=== PATIENT | male | born 1965 | race Caucasian/White ===

== ENCOUNTER → 2020-05-26 11:20 | Outpatient (CLI) | payer OTHER, SELFPAY ==
[2020-05-26 10:08] VITALS: BMI 33.7
--- NOTE | 2020-05-26 11:40 | RAD_ITS ---
STUDY: X-RAY CHEST REASON FOR EXAM: Male, 55 years old. Chest pain. TECHNIQUE: Frontal and lateral views of the chest. COMPARISON: None. FINDINGS: Mild hyperexpansion. There is no demonstrated pleural abnormality. Normal size heart. Normal mediastinum and lian. Normal visualized pulmonary arteries. Normal visualized aortic arch and descending thoracic aorta. Normal visualized thoracic spine. Normal visualized ribs, clavicles, and shoulders. There is no demonstrated abnormality of the visualized soft tissue structures of the upper abdomen. RAD/Chest PA and Lateral IMPRESSION: Follow-up hyperexpansion with no acute or active cardiopulmonary disease. Electronically Signed: Sj Shahid MD at 15:41 EDT , Service support ,
== END ==
PROVIDERS: Referring Provider Internal Medicine Cardiovascular Disease; Visit Provider Internal Medicine Cardiovascular Disease
DX: R07.9 Chest pain, unspecified (principal); E78.2 Mixed hyperlipidemia; I10 Essential (primary) hypertension; R20.9 Unspecified disturbances of skin sensation
CPT/HCPCS: 71046

== ENCOUNTER → 2020-06-03 09:21 | Outpatient (CLI) | payer OTHER, SELFPAY ==
[2020-05-26 10:08] VITALS: BMI 33.7
--- NOTE | 2020-06-03 10:57 | STRESSREP ---
Stress Test Report Date: 06-03-2020 Procedure: Exercise tolerance test Indications: Chest pain Consent: Per the patient Procedure: The patient exercised on a Norberto protocol for 7 minutes and 32 seconds completing stage II and 1 minute and 32 seconds of stage III achieving a peak heart rate of 136 bpm (82% predicted maximal heart rate) with a peak blood pressure 178/98 mmHg and a peak MET capacity of approximately 9 MET's. The baseline ECG demonstrated sinus rhythm. The peak exercise ECG demonstrated somatic/motion artifact with no obvious ECG changes. There was a rare PVC during recovery. The functional capacity was considered good. The patient had chest discomfort during exercise with spontaneous resolution in recovery. The examination was discontinued secondary to chest tightness and dyspnea. The patient's chest tightness was reported to spontaneously resolved in recovery. Impression: 1. Technically adequate (percent predicted maximal heart rate greater than 85%) exercise tolerance test 2. Peak exercise ECG with somatic/motion artifact with no obvious ECG changes 3. There was a rare PVC during recovery 4. Comment: The patient noted chest discomfort during exercise with spontaneous resolution in recovery. This note was generated with [employer] software. It may contain incorrect words, spelling, and punctuation that were not noted in checking the note before signing.
== END ==
PROVIDERS: Referring Provider Nurse Practitioner Family; Visit Provider Nurse Practitioner Family
DX: R07.9 Chest pain, unspecified (principal); R06.02 Shortness of breath; Z82.49 Family history of ischemic heart disease and other diseases of the circulatory system
CPT/HCPCS: 93017

== ENCOUNTER → 2020-06-10 13:19 | Outpatient (CLI) | payer OTHER, SELFPAY ==
[2020-05-26 10:08] VITALS: BMI 33.7
--- NOTE | 2020-06-10 13:20 | ART_ITS ---
Reason For Study: PVD Procedure A bilateral lower extremity continuous wave Doppler with analog waveform analysis,segmental pressures,and ankle brachial indexes without exercise. Left Segmental Pressures Left brachial= 127mmHg. Left posterior tibial artery = 169mmHg. Left dorsalis pedis artery = 153mmHg. Left digit = 144 mmHg. The left dorsalis pedis waveforms are triphasic. The left posterior tibial artery waveforms are triphasic. Right Segmental Pressures Right brachial= 136mmHg. Right posterior tibial artery = 184mmHg. Right dorsalis pedis artery = 171mmHg. Right digit = 146 mmHg. The right dorsalis pedis waveforms are triphasic. The right posterior tibial artery waveforms are triphasic. Indices The right ankle brachial index by the dorsalis pedis is 1.26. The right ankle brachial index by the posterior tibial artery is 1.35. The right digital-brachial index is 1.07. The left ankle brachial index by the dorsalis pedis is 1.13. The left ankle brachial index by the posterior tibial artery is 1.24. The left digital-brachial index is 1.06. VL/Lower Ext Art Exam w/o Exercis Interpretation Summary Normal bilateral lower extremity ankle brachial indices and triphasic doppler w aveforms at rest. Normal bilateral digital brachial indices Ordering Physician: Gabriele Zelaya Referring Physician: Jamin Benson Performed By: Criss Moore RVT
== END ==
PROVIDERS: Referring Provider Internal Medicine Cardiovascular Disease; Visit Provider Internal Medicine Cardiovascular Disease
DX: R20.9 Unspecified disturbances of skin sensation (principal); E78.2 Mixed hyperlipidemia; I10 Essential (primary) hypertension; R07.9 Chest pain, unspecified
CPT/HCPCS: 93923

== ENCOUNTER → 2020-07-12 06:14 | Outpatient (CLI) | payer OTHER, SELFPAY ==
[2020-05-26 10:08] VITALS: BMI 33.7
--- NOTE | 2020-07-12 08:15 | STRESSREP ---
Stress Test Report Date: 07-12-2020 Procedure: Exercise tolerance test/imaging study Indications: Chest pain; CAD Consent: Per the patient Procedure: The patient exercised on a Norberto protocol for 9 minutes and 15 seconds completing Stage III and 15 seconds of Stage IV achieving a peak heart rate of 134 bpm (81% predicted maximal heart rate) with a peak blood pressure 188/80 mmHg and a peak MET capacity of 10 METs. The baseline ECG demonstrated sinus bradycardia. The peak exercise ECG demonstrated somatic/motion artifact with no obvious ECG changes. There was a rare PVC during recovery. The functional capacity was considered good. There was sharp left-sided chest discomfort in recovery with spontaneous resolution to baseline. The examination was discontinued secondary to dyspnea. Impression: 1. Technically inadequate (percent predicted maximal heart rate less than 85%) exercise tolerance test 2. Peak exercise ECG with somatic/motion artifact with no obvious ECG changes at the heart rate achieved 3. There was a rare PVC during recovery 4. Nuclear images pending Myocardial perfusion imaging study: Technique: The patient was injected with 14.5 mCi of technetium 99m Cardiolite and subsequently rest SPECT Cardiolite nuclear imaging was obtained in the horizontal long, vertical long, and short axis views. The patient exercised on a Norberto protocol for 9 minutes and 15 seconds completing Stage III and 15 seconds of Stage IV achieving a peak heart rate of 134 bpm (81% predicted maximal heart rate) with a peak blood pressure 188/80 mmHg and a peak MET capacity of 10 METs. The patient was injected with 44.5 mCi of technetium 99m Cardiolite and subsequently stress SPECT Cardiolite nuclear imaging was obtained in the horizontal long, vertical long, and short axis views. A gated Cardiolite study at peak stress was obtained. Interpretation: Rest and stress SPECT Cardiolite nuclear imaging status post realignment, normalization, and attenuation correction, demonstrates the appearance of body motion during image acquisition and also demonstrates the appearance of a small area of subtle diminished tracer uptake near the apical segments without significant change between rest and stress as well as at rest the appearance of subtle diminished tracer uptake near the distal anterior segments which appears to improve/normalize following stress. There is end systolic thickening and brightening. The gated Cardiolite study demonstrates myocardial thickening and inward wall motion. The reported LVEF is 63%. Impression: 1. Rest and stress SPECT Cardiolite nuclear imaging demonstrate the appearance of a small area of subtle diminished tracer uptake near the apical segments with at rest and stress without significant change appearing compatible with physiologic apical thinning as well as the appearance of subtle diminished tracer uptake near the distal anterior segments at rest which appears to improve/normalize following stress appearing compatible with shifting soft tissue attenuation/artifact with no myocardial perfusion changes considered diagnostic for associated stress-induced myocardial ischemia at the heart rate achieved. 2. The gated Cardiolite study reports an LVEF of 63%. This note was generated with [employer] software. It may contain incorrect words, spelling, and punctuation that were not noted in checking the note before signing.
== END ==
PROVIDERS: Referring Provider Internal Medicine Cardiovascular Disease; Visit Provider Internal Medicine Cardiovascular Disease
DX: R07.9 Chest pain, unspecified (principal); R06.02 Shortness of breath; I10 Essential (primary) hypertension; E78.2 Mixed hyperlipidemia
CPT/HCPCS: 78452; 93017; A9500; A4216

== ENCOUNTER 2023-02-13 15:08 | Inpatient (IN) | payer OTHER, SELFPAY ==
[2023-02-13 15:08] VITALS: BP 139/92; PULSE 133; RESP 16; TEMP 39.5; O2SAT 96; BMI 34.9
--- NOTE | 2023-02-13 15:24 | CT_ITS ---
STUDY: CT ABDOMEN AND PELVIS WITHOUT CONTRAST REASON FOR EXAM: Male, 58 years old. Pain, fever RADIATION DOSAGE (If Supplied By Facility): CTDIvol = ( 17.44 ) mGy, DLP = ( 1141.75 ) mGycm TECHNIQUE: Transaxial images were obtained from the dome of the diaphragm to the symphysis pubis without oral contrast, and without intravenous contrast. Sagittal and coronal images were reconstructed. Individualized dose optimization techniques were used for this CT. COMPARISON: None. FINDINGS: Minimal bilateral lower lobe atelectasis. Borderline cardiomegaly. Normal liver. Normal gallbladder and extrahepatic biliary system. Normal spleen. Normal pancreas. Normal bilateral adrenal glands. Minimal bilateral perinephric stranding, otherwise normal right kidney. Normal left kidney. Normal visualized stomach. Normal small intestine. Mild diverticulosis with no signs of diverticulitis. The appendix is visualized and appears normal. Normal abdominal aorta. Normal inferior vena cava. Normal retroperitoneum. Normal urinary bladder. Nonspecific diffuse scrotal edema. There is fullness of the right inguinal lymph nodes, etiology indeterminate and commonly associated with nonspecific inflammatory response. Small left-sided fat-containing inguinal hernia. Mild stranding within the subcutaneous fat along the right anterior scrotal and right anterior inguinal region , which may indicate cellulitis. There are diffuse degenerative changes of the visualized lumbar spine. CT/Abdomen/Pelvis without Cont IMPRESSION: No acute process within the abdomen and pelvis. Specifically, no acute appendicitis. Minimal diverticulosis with no signs of diverticulitis. Mild right-sided inguinal lymphadenopathy. Nonspecific bilateral scrotal edema with questionable right cellulitis along the upper scrotum and inguinal region. If indicated, these findings may be further assessed with scrotal ultrasound. Electronically Signed: Rosibel Scott MD at 16:48 EST ,
--- NOTE | 2023-02-13 15:24 | US_ITS ---
STUDY: SCROTUM ULTRASOUND REASON FOR EXAM: Male, 58 years old. Swelling, pain RT and gt;LT TECHNIQUE: Ultrasound evaluation of the scrotum was performed with color Doppler and static mora-scale imaging. COMPARISON: None. FINDINGS: RIGHT TESTICLE INTRATESTICULAR: There is a normal size of the right testicle. The right testicle measures 3.6 x 3.3 x 2.7 cm. There is a homogenous echotexture. There is normal arterial and normal venous vascularity. There is no demonstrated right testicular mass or cyst. EXTRATESTICULAR: The epididymis is enlarged. The epididymis head measures 1.7 x 1.3 x 1.1 cm. There is normal vascularity of the epididymis. There is no demonstrated epididymal cystic structure. There is a large hydrocele with subtle internal echoes. There is no demonstrated varicocele. There is no demonstrated extratesticular mass or cyst. The right scrotal wall measures 0.9 cm. There is nonspecific edema through the scrotal wall. LEFT TESTICLE INTRATESTICULAR: There is a normal size of the left testicle. The left testicle measures 3.3 x 3.1 x 2.0 cm. There is a homogenous echotexture. There is normal arterial and normal venous vascularity. There is no demonstrated left testicular mass or cyst. EXTRATESTICULAR: The epididymis is normal in size. The epididymis head measures 0.7 x 0.7 x 0.6 cm. There is normal vascularity of the epididymis. There is no demonstrated epididymal cystic structure. There is a large hydrocele with subtle internal echoes. There is no demonstrated varicocele. There is no demonstrated extratesticular mass or cyst. The left scrotal wall measures 0.9 cm. There is nonspecific edema throughout the scrotal wall US/Testicular with Arterial Flow IMPRESSION: Bilateral scrotal wall edema, right more than left with mild increased vascularity, cannot exclude cellulitis, clinical correlation recommended. No abscess seen. Bilateral large hydroceles with subtle internal echoes which may represent artifact versus sequela of infectious process or prior trauma. Bilateral testes are within normal limits with no intratesticular mass. Normal symmetrical color flow within the testis seen. Electronically Signed: Rosibel Scott MD at 17:38 EST ,
--- NOTE | 2023-02-13 15:25 | EKG12_ITS ---
Test Reason : Blood Pressure : / mmHG Vent. Rate : 113 BPM Atrial Rate : 113 BPM P-R Int : 154 ms QRS Dur : 086 ms QT Int : 318 ms P-R-T Axes : 003 038 018 degrees QTc Int : 436 ms Sinus tachycardia Otherwise normal ECG Confirmed by DAVEY NUÑEZ, ALEXANDRIA ([id number]), dictionary editor NAYELY OCHOA ([id number]) on 02/15/2023 1:24:24 PM Referred By: Confirmed By:ALEXANDRIA MARISCAL MD
--- NOTE | 2023-02-13 15:27 | EX.ED.GUMALE ---
HPI History of Present Illness Chief Complaint: Male Pain/Injury Narrative Narrative: 58-year-old male who denies significant past medical history presents with swelling of his penis and scrotum that he has had for the last few days. He relates history that on Saturday evening, states he had not had intercourse with his fianc?e in a while, so they were using a metal ring, and got aggressive. The following day, he noticed mild swelling of the skin on the shaft of his penis. Since then, over the last 4 days, he has had increased swelling and pain. He has been running fever and chills. He is able to urinate, but states he is having bladder pain. Additionally, the area on his right scrotum and his right testicle has been swollen. 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 He denies any discharge from his penis. No dysuria or hematuria. [facility] Medical History Chest pain COVID-19 (~01/2020) Essential hypertension Family history of heart disease Mixed hyperlipidemia Home Medications metoprolol tartrate 25 mg tablet 25 mg PO BID BLOOD PRESSURE 05/09/20 [History Last Taken 02/13/23] rosuvastatin 10 mg tablet 10 mg PO DAILY CHOLESTEROL 05/09/20 [History Last Taken Unknown] aspirin 325 mg tablet 325 mg PO DAILY HEART HEALTH 02/13/23 [History Last Taken Unknown] Allergy/AdvReac Type Severity Reaction Status Date / Time No Known Allergies Allergy Verified 02/13/23 15:11 Family History Father CAD (coronary artery disease) Stents X 3 Myocardial infarction Grandfather Myocardial infarction CABG CAD (coronary artery disease) Grandfather Myocardial infarction Social History Smoking Status: Light Smoker (<10/day) alcohol intake: current details: occasional substance use type: does not use caffeine: Yes Type: coffee Number of servings: 1 ROS ROS ED ROS Narrative Constitutional: Positive fever, positive chills. HEENT: No sore throat. No neck pain. No loss of vision. No rhinorrhea. Cardiovascular: No chest pain. No palpitations. No pedal edema. Respiratory: No cough, no shortness of breath. Abdominal: No abdominal pain. No nausea. No vomiting. Genitourinary: No dysuria. No hematuria. Positive swelling of shaft of penis and scrotum. Positive suprapubic tenderness and pain. Musculoskeletal: No myalgias. No arthralgias. Neurologic: No headaches. No dizziness. No lightheadedness. Skin: No rash. Positive for redness to scrotum and penile area. Psychiatric: No depression. No anxiety. EXAM Physical Exam Narrative Exam Narrative: Positive fever vital signs noted. Nontoxic-appearing. HEENT: Normocephalic. Atraumatic. PERRL, EOMI. Neck soft and supple. No point tenderness or step off. Cardiovascular: Positive tachycardia. No murmurs, rubs, or gallops appreciated. Respiratory: No tachypnea. Lungs clear to auscultation bilaterally. Gastrointestinal: Abdomen soft, mild tenderness suprapubically with normoactive bowel sounds. No rebound or guarding. Genitourinary: Chaperoned examination reveals positive swelling of the penile shaft, edematous, with swelling of the right scrotum with mild firmness. There is cracked dry, broken skin on the glans penis with erythema, no purulent drainage. No perineal erythema noted, no crepitance. Neurological: Awake. Alert. Nonfocal, nonlateralizing. Skin: No rash. Positive erythema of glans penis, penile shaft, and scrotum. Musculoskeletal: No pedal edema. Full range of motion extremities. Const Vital Signs: 02/13/23 15:08 02/13/23 15:25 02/13/23 17:57 Temperature 103.1 F H 99.1 F Temperature Source Oral Oral Pulse Rate 133 H 90 Respiratory Rate 16 16 Blood Pressure 139/92 H Blood Pressure Mean 107 Pulse Ox 96 97 Oxygen Delivery Method Room Air Room Air Room Air MDM MDM MDM Narrative Medical decision making narrative: In the differential diagnosis is cellulitis of the penis and scrotal area. He states the day before he was having vigorous intercourse, he may have had mild itchiness of his groin. In the differential diagnosis is yeast infection versus cellulitis from denuded epidermal layer of the genitals. I have lower suspicion for Yaya's gangrene and necrotizing fasciitis as patient is not diabetic, and he is circumcised. Although he has circumferential swelling of the penile shaft, I have low concern for paraphimosis/phimosis as once again he is circumcised. He is able to urinate. As he has a fever of 103.1 ?F and is tachycardic, sepsis workup was pursued including blood cultures. He was administered Tylenol and a first dose of Zosyn. He was also started on vancomycin as well. He declined any analgesics here in the emergency department initially. I reviewed his laboratory work and he has a leukocytosis of 23.4 with a hemoglobin normal at 14.2, hematocrit 42.4, platelet count normal at 359. Neutrophil percentage is elevated at 88.1. Sodium is slightly low at 133 with potassium 3.3, BUN of 15 and creatinine of 1.07. Glucose appropriately elevated at 126 with a normal anion gap of 10. Lactic acid is normal at 1.2. After Tylenol, his temperature came down to 101 ?F. Urinalysis is negative for infection with 0-5 WBCs and [address] of the abdomen and pelvis with out contrast was obtained and there is no evidence of an intra-abdominal process and reviewed the radiology report, they also comment on right inguinal lymphadenopathy. I also reviewed the testicular ultrasound report which shows good flow to both testicles and scrotal edema consistent with cellulitis but no evidence of an abscess. There is evidence of bilateral hydrocele as well which may be from infectious process versus traumatic. Patient did state that he was involved in vigorous sexual activity approximately 5 days ago. I discussed patient with Dr. Kim Lam who will admit the patient. Disposition is admit in stable condition. History & Record Review Discussion w/independent historian: Patient and Significant other (Fianc?) Additional record(s) reviewed:: No prior records Lab Data Attestation: I reviewed the patient's lab results. Labs: Laboratory Results - last 24 hr 02/13/23 02/13/23 15:50 16:00 WBC 23.4 H RBC 4.72 Hgb 14.2 Hct 42.4 MCV 89.8 MCH 30.1 MCHC 33.5 RDW Std Deviation 41.5 RDW Coeff of [place] 12.4 Plt Count 359 MPV 9.9 Immature Gran % (Auto) 1.200 H Neut % (Auto) 88.1 H Lymph % (Auto) 3.7 L [place] % (Auto) 6.7 Eos % (Auto) 0.0 Baso % (Auto) 0.3 Absolute Neuts (auto) 20.7 H Absolute Lymphs (auto) 0.86 Nucleated RBC % 0 Differential Comment SCANNED Diff Path Review May foll PT 15.6 H INR 1.2 APTT 29.5 Sodium 133 L Potassium 3.3 L Chloride 102 Carbon Dioxide 21.0 Anion Gap 10 BUN 15 Creatinine 1.07 Estim Creat Clear Calc 76.75 Est GFR (MDRD) Af Amer 91 Est GFR (MDRD) Non-Af 75 BUN/Creatinine Ratio 14.0 Glucose 126 H Lactic Acid 1.2 Calcium 9.1 Total Bilirubin 2.20 H AST 15 ALT 18 Alkaline Phosphatase 85 Total Protein 7.9 Albumin 3.3 Globulin 4.6 H Albumin/Globulin Ratio 0.7 L Urine Color Yellow Urine Clarity Sl. Cloudy Urine pH 5.0 Ur Specific [place] 1.020 Urine Protein 100 H Urine Glucose (UA) Normal Urine Ketones 50 H Urine Occult Blood 150 H Urine Nitrite Negative Urine Bilirubin Negative Urine Urobilinogen 4 H Ur Leukocyte Esterase 25 H Urine RBC 0-5 SEEN Urine WBC 0-5 SEEN Ur Squamous Epith Cells 0 SEEN Urine Bacteria 0 SEEN Urine Mucus 0 SEEN Radiography Diagnostic Testing: Clinical Impression(s) from Imaging Studies Abdomen/Pelvis CT 02/13/23 15:24 IMPRESSION: No acute process within the abdomen and pelvis. Specifically, no acute appendicitis. Minimal diverticulosis with no signs of diverticulitis. Mild right-sided inguinal lymphadenopathy. Nonspecific bilateral scrotal edema with questionable right cellulitis along the upper scrotum and inguinal region. If indicated, these findings may be further assessed with scrotal ultrasound. Electronically Signed: Rosibel Scott MD at 16:48 EST , Testicular Ultrasound 02/13/23 15:24 IMPRESSION: Bilateral scrotal wall edema, right more than left with mild increased vascularity, cannot exclude cellulitis, clinical correlation recommended. No abscess seen. Bilateral large hydroceles with subtle internal echoes which may represent artifact versus sequela of infectious process or prior trauma. Bilateral testes are within normal limits with no intratesticular mass. Normal symmetrical color flow within the testis seen. Electronically Signed: Rosibel Scott MD at 17:38 EST , Management Discussion w/another healthcare provider: Hospitalist Discharge Plan Triage Chief Complaint: Male Pain/Injury ED Provider: Yang Garsia Dx/Rx/DC Orders Clinical Impression: Cellulitis of scrotum, Penile edema, Cellulitis of penis Prescriptions: No Action aspirin 325 mg tablet 325 mg PO DAILY metoprolol tartrate 25 mg tablet 25 mg PO BID rosuvastatin 10 mg tablet 10 mg PO DAILY Patient Comments: PT STATES IT UPSETS THEIR STOMACH SO THEY HAVE NOT BEEN TAKING THIS MEDICATION. PT STATES THEY ARE SUPPOSED TO BE ON THIS MEDICATION ( OF 02-13-23) Primary Care Provider: Care Physician,No Primary Referrals: Jamin Benson MD [Non-Staff] -
--- NOTE | 2023-02-13 15:32 | NURSING ---
NO OLD EKGS
[2023-02-13] MEDS: Acetaminophen 500 MG Tablet 1000 MG PO ×2 (16:04→22:01)
[2023-02-13] MEDS: 0.9% Normal Saline (1000mL) 1,000 ML 999 ML IV (16:04)
[2023-02-13] MEDS: Piperacil/Tazobactam 3.375 GM in 0.9% Normal Saline (50mL MB+) 50 ML IV ×2 (16:04→22:02)
[2023-02-13 16:13] LABS: Bacteria 0 SEEN /hpf (None Seen); Mucous, Urine 0 SEEN /hpf (<or=2+); Squamous Epithelial Cells - UA 0 SEEN /hpf (0-5)
[2023-02-13 16:24] LABS: Absolute Lymphocyte Count 0.86 X10^3/uL (0.83-4.51); Absolute Neutrophil Count 20.7 X10^3/uL (2.0-7.7); Basophil# 0.07 X10^3/uL; Basophil% 0.3 % (0-1); Hematocrit 42.4 % (40-54); Hemoglobin 14.2 g/dL (13.0-16.5); Lymphocyte # 0.86 X10^3/ul (0.83-4.51); Lymphocyte % 3.7 % (19-41); Mean Corp Hgb Conc 33.5 g/dL (32-36); Mean Corpuscular Hgb 30.1 pg (27.0-32.0); Mean Corpuscular Volume 89.8 fL (80-94); Mean Platelet Vol. 9.9 fl (6.2-12.0); Monocyte# 1.58 X10^3/uL; Monocyte% 6.7 % (0-10); NRBC Flagged by Analyzer 0 % (0-5); Neutrophil # 20.66 X10^3/uL (2.7-7.7); Neutrophil % 88.1 % (47-70); POSITIVE DIFFERENTIAL YES; Platelet Count 359 K/mm3 (150-450); RBC Distribution Width CV 12.4 % (11.6-14.6); RBC Distribution Width SD 41.5 fl (35.1-43.9); Red Blood Count 4.72 M/mm3 (4.6-6.2); White Blood Count 23.4 K/mm3 (4.4-11.0)
[2023-02-13 16:25] LABS: Color, Urine Yellow (Yellow); Glucose, Dipstick Normal (Normal); Ketone-Dipstick 50 mg/dl (Negative); Leukocyte Esterase-Dipstick 25 /ul (Negative); Nitrite-Dipstick Negative (Negative); Occult Blood-Urine 150 /ul (Negative); Protein-Dipstick 100 mg/dl (Negative); Urine Bilirubin Dipstick Negative (Negative); Urine Clarity Sl. Cloudy (Clear); Urine Urobilinogen 4 mg/dl (Normal)
[2023-02-13 16:25] LABS: Differential Indicated SCAN CRITERIA MET
[2023-02-13 16:31] LABS: International Normalized Ratio 1.2; Prothrombin Time (Protime)PT. 15.6 SECONDS (11.7-14.9)
[2023-02-13 16:32] LABS: Partial Thromboplast Time 29.5 Seconds (24.1-36.2)
[2023-02-13 16:39] LABS: ALB/GLOB Ratio 0.7 RATIO (0.9-2.4); AST(SGOT) 15 U/L (15-37); Alanine Aminotransfer ALT/SGPT 18 U/L (16-61); Albumin, Serum 3.3 g/dL (3.2-5.0); Alkaline Phosphatase 85 U/L (45-117); Anion Gap 10 (5-15); BUN 15 mg/dL (7-18); Calcium,Total 9.1 mg/dL (8.5-10.1); Chloride 102 mmol/L (98-107); Creatinine, Serum 1.07 mg/dL (0.70-1.30); EST Glomerular Filtration Rate 75 mL/min (>60); Est Glom Filt Rate - Afr Amer 91 mL/min (>60); Estimated Creatinine Clearance 76.75 ml/min; Globulin 4.6 g/dL (2.2-4.2); Glucose 126 mg/dL (74-106); Potassium 3.3 mmol/L (3.5-5.1); Protein, Total 7.9 g/dL (6.4-8.2); Sodium Level 133 mmol/L (136-145)
[2023-02-13 16:47] LABS: Red Blood Cells-Urine 0-5 SEEN /hpf (0-5); White Blood Cells 0-5 SEEN /hpf (0-5)
[2023-02-13 16:51] LABS: Lactic Acid 1.2 mmol/L (0.4-1.9)
[2023-02-13] MEDS: Vancomycin HCl 2,000 MG in 0.9% Normal Saline (500mL Bag) 500 ML 250 MG IV (17:05)
[2023-02-13 17:10] LABS: Differential Comment SCANNED
[2023-02-13 17:57] VITALS: BP 127/84; PULSE 90; RESP 16; TEMP 37.3; O2SAT 97
--- NOTE | 2023-02-13 18:02 | PCM.HP.STD ---
HPI - General General Date of Admission: 02/13/23 Date of Service: 02/13/23 Chief Complaint: Swelling of scrotum and penis HPI Narrative MANUELA GUERRERO, is a 58 M who presented to the emergency department at [facility] on 02/13/2023 complaining of swelling of his scrotum and penis. Evidently started a couple days ago. He he noted that on Saturday evening he had not had sexual intercourse with his fianc?e in a while so they used a cock ring and got aggressive. The following day he noted some mild swelling in the skin of the shaft of his penis and since that point in time 4 days of gone by and is at increased swelling and pain. He reported he has been running some fever and chills at home but not having any difficulty urinating. He does report some bladder pain when he does urinate. He indicates that additionally, his right scrotum and right testicle have been swollen. He denied any significant discharge from his penis and had no dysuria or hematuria. He has had some fever and chills and has overall generally not been feeling well over the last day or so started with fever and chills yesterday.. Vital signs on presentation showed a temperature of 103.1, heart rate 133, blood pressure was 139/92, respiratory rate was 16 and oxygen saturations were 96 on room air. Repeat vitals show that he is now afebrile with a normal heart rate at 90. CBC shows a leukocytosis with a white count of 23.4 and a left shift with an 88.1% neutrophilia but was otherwise unremarkable. Coags are normal. He is mildly hyponatremic with a sodium of 133, mildly hypokalemic with a potassium of 3.3 and his bilirubin is slightly elevated at 2.20. Serum glucose is 126 and his lactic acid was 1.2. His UA did show some occult blood but there is no signs of infection. Imaging was performed. CT of his abdomen pelvis showed no acute process in the abdomen and pelvis but did show mild right-sided inguinal lymphadenopathy with nonspecific bilateral scrotal edema and questionable right cellulitis along the upper scrotum and inguinal region. Scrotal ultrasound was performed and demonstrated bilateral scrotal wall edema right greater than left with mild increased vascularity consistent with cellulitis but no abscess noted, bilateral large hydroceles with normal-appearing testes. Given the fact there is no signs of Yaya's gangrene on the imaging, he was started on IV antibiotics and request for admission was made. [facility] Medical History Chest pain COVID-19 (~01/2020) Essential hypertension Family history of heart disease Mixed hyperlipidemia Home Medications metoprolol tartrate 25 mg tablet 25 mg PO BID BLOOD PRESSURE 05/09/20 [History Last Taken 02/13/23] rosuvastatin 10 mg tablet 10 mg PO DAILY CHOLESTEROL 05/09/20 [History Last Taken Unknown] aspirin 325 mg tablet 325 mg PO DAILY HEART HEALTH 02/13/23 [History Last Taken Unknown] Allergy/AdvReac Type Severity Reaction Status Date / Time No Known Allergies Allergy Verified 02/13/23 15:11 Family History Father CAD (coronary artery disease) Stents X 3 Myocardial infarction Grandfather Myocardial infarction CABG CAD (coronary artery disease) Grandfather Myocardial infarction Surgical History no surgical history no surgical history Social History (Updated 02/13/23 @ 18:[address] Lien Lam DO) household members: significant other housing: house Smoking Status: Light Smoker (<10/day) details: occasional substance use type: does not use caffeine: Yes Type: coffee Number of servings: 1 ROS Constitutional Constitutional: Reports anorexia, chills, fatigue, fever(s), malaise and weakness; Denies change in weight, night sweats or other Eyes Eyes: Denies blurry vision, change in eye color, change in vision, discharge from eye(s), double vision, erythema, eye pain, loss of vision or other ENT HEENT: Denies abnormal hearing, dysphagia, ear pain, epistaxis, headache(s), hearing loss, nasal congestion, nasal discharge, post nasal drip, sinus pressure, sore throat or other Cardiovascular Cardiovascular: Reports rapid heart rate; Denies chest pain, claudication, dyspnea on exertion, edema, lightheadedness, orthopnea, palpitations, paroxysmal nocturnal dyspnea, syncope or other Respiratory/Chest Respiratory/Chest: Denies cough, dyspnea, excessive phlegm production, hemoptysis, productive cough, shortness of breath at rest, shortness of breath with exertion, wheezing or other Gastrointestinal Gastrointestinal: Reports abdominal pain Genitourinary Genitourinary: Reports urinary urgency and other Details: Penile pain and swelling, bilateral scrotal swelling and tenderness Musculoskeletal Musculoskeletal: Reports myalgias Neurologic Neurologic: Denies abnormal gait, abnormal speech, confusion, disequilibrium, dizziness, focal weakness, headache(s), numbness, paresthesias, seizure-like activity, seizures, syncope, tingling, tremor(s) or other Psychiatric Psychiatric: Denies anxiety, depression, homicidal ideation, suicidal ideation or other Endocrine Endocrinology: Denies change in body appearance, cold intolerance, excessive sweating, heat intolerance, polydipsia, polyuria or other Hematologic/Lymphatic Hematologic/Lymphatic: Denies anemia, easy bleeding, easy bruising, lymphadenopathy or other Allergic/Immunologic Allergic/Immunologic: Denies rhinitis, hives, eczemia, asthma or other Vital Signs Vital Signs Vital Signs: 02/13/23 15:08 02/13/23 15:25 02/13/23 17:57 Temperature 103.1 F H 99.1 F Temperature Source Oral Oral Pulse Rate 133 H 90 Respiratory Rate 16 16 Blood Pressure 139/92 H 127/84 H Blood Pressure Mean 107 98 Pulse Ox 96 97 Oxygen Delivery Method Room Air Room Air Room Air Weight Weight: 110.251 kg Body Mass Index (BMI) 34.9 Physical Exam Const alert, oriented x3 and well nourished; Negative for no apparent distress, average body habitus or healthy appearing Constitutional Narrative: Ill-appearing, upper middle-aged, white male, lying in bed with a cold compress over his forehead, significant other is at bedside General Appearance: cooperative HEENT normocephalic, head/scalp atraumatic, hearing grossly normal bilaterally and moist oral mucous membranes HEENT Narrative: Mallampati 3, no thrush Eyes PERRL, EOMs intact bilaterally and conjunctivae normal Eyes Narrative: No scleral icterus Neck no lymphadenopathy and supple Neck Narrative: Trachea midline, no thyroid enlargement Resp normal respiratory effort, no retractions, no use of accessory muscles and clear to auscultation bilaterally Auscultation: Negative for rales, rhonchi or wheezes Cardio regular rate, regular rhythm, S1 normal heart sound, S2 normal heart sound, no murmurs, no rub, no gallops and no clicks GI normal to inspection, nondistended, normoactive bowel sounds and soft to palpation GI Narrative: Mild tenderness at the very distal aspect of his abdomen no CVA tenderness; Negative for external exam normal, scrotum normal or no scrotal swelling Narrative: Severe scrotal swelling with erythema bilaterally and swelling and erythema of the penis, scrotum is severely tender Extremity no clubbing, cyanosis or edema Extremity Narrative: Mild right-sided inguinal lymphadenopathy palpated, pedal pulses are 2+ Neuro oriented x3, CN's II-XII intact bilaterally, moves all extremities and no focal motor deficits Speech: speech normal Psych affect normal Psych Narrative: Interacts appropriately Results Lab / Micro Data Attestation: I reviewed the patient's lab results. 02/13/23 15:50 02/13/23 15:50 Labs: Laboratory Results - last 24 hr 02/13/23 15:50: WBC 23.4 H, RBC 4.72, Hgb 14.2, Hct 42.4, MCV 89.8, MCH 30.1, MCHC 33.5, RDW Std Deviation 41.5, RDW Coeff of Eboni 12.4, Plt Count 359, MPV 9.9, Immature Gran % (Auto) 1.200 H, Neut % (Auto) 88.1 H, Lymph % (Auto) 3.7 L, [place] % (Auto) 6.7, Eos % (Auto) 0.0, Baso % (Auto) 0.3, Absolute Neuts (auto) 20.7 H, Absolute Lymphs (auto) 0.86, Nucleated RBC % 0, Differential Comment SCANNED, Diff Path Review June, PT 15.6 H, INR 1.2, APTT 29.5, Sodium 133 L, Potassium 3.3 L, Chloride 102, Carbon Dioxide 21.0, Anion Gap 10, BUN 15, Creatinine 1.07, Estim Creat Clear Calc 76.75, Est GFR (MDRD) Af Amer 91, Est GFR (MDRD) Non-Af 75, BUN/Creatinine Ratio 14.0, Glucose 126 H, Lactic Acid 1.2, Calcium 9.1, Total Bilirubin 2.20 H, AST 15, ALT 18, Alkaline Phosphatase 85, Total Protein 7.9, Albumin 3.3, Globulin 4.6 H, Albumin/Globulin Ratio 0.7 L 02/13/23 16:00: Urine Color Yellow, Urine Clarity Sl. Cloudy, Urine pH 5.0, Ur Specific [place] 1.020, Urine Protein 100 H, Urine Glucose (UA) Normal, Urine Ketones 50 H, Urine Occult Blood 150 H, Urine Nitrite Negative, Urine Bilirubin Negative, Urine Urobilinogen 4 H, Ur Leukocyte Esterase 25 H, Urine RBC 0-5 SEEN, Urine WBC 0-5 SEEN, Ur Squamous Epith Cells 0 SEEN, Urine Bacteria 0 SEEN, Urine Mucus 0 SEEN Imagaing Radiology Impression Abdomen/Pelvis CT 02/13/23 15:24 IMPRESSION: No acute process within the abdomen and pelvis. Specifically, no acute appendicitis. Minimal diverticulosis with no signs of diverticulitis. Mild right-sided inguinal lymphadenopathy. Nonspecific bilateral scrotal edema with questionable right cellulitis along the upper scrotum and inguinal region. If indicated, these findings may be further assessed with scrotal ultrasound. Electronically Signed: Rosibel Scott MD at 16:48 EST Reading Location ID and State: [email or web address] / [place] , Service support , Testicular Ultrasound 02/13/23 15:24 IMPRESSION: Bilateral scrotal wall edema, right more than left with mild increased vascularity, cannot exclude cellulitis, clinical correlation recommended. No abscess seen. Bilateral large hydroceles with subtle internal echoes which may represent artifact versus sequela of infectious process or prior trauma. Bilateral testes are within normal limits with no intratesticular mass. Normal symmetrical color flow within the testis seen. Electronically Signed: Rosibel Scott MD at 17:38 EST , Assessment & Plan Assessment/Plan (1) Cellulitis of penis: (2) Cellulitis of scrotum: (3) Leukocytosis: (4) Hypokalemia: (5) Hyponatremia: (6) Hyperbilirubinemia: PLAN: Plan Severe penile and scrotal cellulitis -Consult urology however I do not feel that any surgical intervention will likely need to be performed -No signs of Yaya's gangrene on imaging -Broad-spectrum antibiotics with vancomycin and Zosyn -Blood and urine cultures were obtained -IV fluids x 2 L at 100 cc/h then stop -Scheduled Tylenol and as needed pain medication with oxycodone -As needed antiemetics Mild hyponatremia -Sodium is 133 -Likely related to decreased p.o. intake due to infection -IV fluids given -Repeat in a.m. Hypokalemia -Replace with 40 mill equivalents p.o. potassium -Repeat in a.m. -Check a.m. magnesium level Hyperbilirubinemia -Likely related to acute infection -Repeat lab in a.m. -No significant liver pathology noted on CT of the abdomen pelvis Hyperglycemia -No history of diabetes -Check hemoglobin A1c as this would increase risk for infection -Monitor Leukocytosis -Due to the above -repeat white count with repeat CBC tomorrow Hypertension -Continue home metoprolol Hyperlipidemia -Continue home rosuvastatin Obesity -BMI 34.9 -Recommend weight loss Complicates treatment, prognosis, outcomes Tobacco abuse -Light smoker -17 g nicotine patch available if desired DVT prophylaxis -Lovenox subcu CODE STATUS Full code Charges/Coding Visit Charges Inpatient E&M: 26915 Init Hosp L2
--- NOTE | 2023-02-13 18:07 | NURSING ---
MED SURG ESTHER SCROTAL CELLULITIS, PENILE EDEMA AND CELLULITIS
[2023-02-13 18:50] LABS: Hemoglobin A1c 5.6 % (3.8-5.6)
[2023-02-13 18:52] VITALS: BP 127/76; PULSE 100; RESP 18; TEMP 37.2; O2SAT 97
[2023-02-13 19:03] VITALS: BP 139/91; PULSE 88; RESP 18; TEMP 36.5; O2SAT 97
[2023-02-13 19:55] VITALS: BMI 30.7
[2023-02-13] MEDS: 0.9% Normal Saline (1000mL) 1,000 ML 100 ML IV (20:12)
--- NOTE | 2023-02-13 20:22 | PCM.RX.CS ---
Consult Antibiotic Management Pharmacy has been consulted to manage selected antiobiotic: Vancomycin Type of Intervention Type of Consult: New start Suspected Infection Suspected Infection: Skin/Soft tissue Labs Labs: Sodium 133 mmol/L (136-145) L 02/13/23 15:50 Potassium 3.3 mmol/L (3.5-5.1) L 02/13/23 15:50 Chloride 102 mmol/L (98-107) 02/13/23 15:50 Carbon Dioxide 21.0 mmol/L (21.0-32.0) 02/13/23 15:50 Anion Gap 10 (5-15) 02/13/23 15:50 BUN 15 mg/dL (7-18) 02/13/23 15:50 Creatinine 1.07 mg/dL (0.70-1.30) 02/13/23 15:50 Est GFR (MDRD) Af Amer 91 mL/min (>60) 02/13/23 15:50 Est GFR (MDRD) Non-Af 75 mL/min (>60) 02/13/23 15:50 BUN/Creatinine Ratio 14.0 RATIO (10-20) 02/13/23 15:50 Glucose 126 mg/dL (74-106) H 02/13/23 15:50 Goal Trough Goal Trough: 15-20 mcg/mL Pharmacy Plan for Drug Dosing Pharmacy Plan for Drug Dosing: NEW IV VANCOMYCIN Consulting Physician: Dr. Scooter Lam Indication: SSTI Goal Trough: 15-20 SrCr: 1.07 CrCl: 76 Ml/min Comments: patient had initial ED dose of vancomycin 2000mg IV x1 admin 02/13 @1705. Vancomycin Dose: Will start patient on 1500mg IV Q12hr to start 02/14/23 @0500. Pending Level: 02/15/23 @0430, prior to 4th total dose of vancomycin per protocol Pharmacy Service will continue to monitor and adjust dosing as required.
[2023-02-13 22:01] VITALS: PULSE 88
[2023-02-13] MEDS: Potassium Chloride Oral Tablet 20 MEQ 40 MEQ PO (22:01)
[2023-02-13] MEDS: Metoprolol Tartrate 25 MG Tablet PO (22:01)
[2023-02-13] MEDS: Atorvastatin Calcium 10 MG Tablet 5 MG PO (22:01)
[2023-02-14] VITALS (7 sets, daily range): BP systolic 126–160; BP diastolic 84–94; PULSE 75–92; RESP 16–20; TEMP 36.9–37.6; O2SAT 97–99
[2023-02-14] MEDS: Vancomycin HCl 1,500 MG in 0.9% Normal Saline (500mL Bag) 500 ML 250 MG IV ×2 (04:36→17:24)
[2023-02-14] MEDS: Acetaminophen 500 MG Tablet 1000 MG PO ×3 (04:37→23:34)
[2023-02-14] MEDS: Piperacil/Tazobactam 3.375 GM in 0.9% Normal Saline (50mL MB+) 50 ML IV ×3 (06:44→23:35)
[2023-02-14] MEDS: 0.9% Normal Saline (1000mL) 1,000 ML 100 ML IV (06:45)
[2023-02-14 06:51] LABS: Absolute Lymphocyte Count 0.54 X10^3/uL (0.83-4.51); Absolute Neutrophil Count 17.5 X10^3/uL (2.0-7.7); Basophil# 0.05 X10^3/uL; Basophil% 0.3 % (0-1); Eosinophil# 0.01 X10^3/uL; Eosinophils% 0.1 % (0-5); Hematocrit 35.9 % (40-54); Hemoglobin 11.9 g/dL (13.0-16.5); Lymphocyte # 0.54 X10^3/ul (0.83-4.51); Lymphocyte % 2.8 % (19-41); Mean Corp Hgb Conc 33.1 g/dL (32-36); Mean Corpuscular Hgb 30.4 pg (27.0-32.0); Mean Corpuscular Volume 91.8 fL (80-94); Mean Platelet Vol. 9.7 fl (6.2-12.0); Monocyte# 1.32 X10^3/uL; Monocyte% 6.7 % (0-10); NRBC Flagged by Analyzer 0 % (0-5); Neutrophil # 17.48 X10^3/uL (2.7-7.7); POSITIVE DIFFERENTIAL YES; Platelet Count 294 K/mm3 (150-450); RBC Distribution Width CV 12.8 % (11.6-14.6); RBC Distribution Width SD 42.9 fl (35.1-43.9); Red Blood Count 3.91 M/mm3 (4.6-6.2); White Blood Count 19.6 K/mm3 (4.4-11.0)
[2023-02-14 06:52] LABS: Differential Indicated SCAN CRITERIA MET
--- NOTE | 2023-02-14 07:18 | CON.PCM.UR_ITS ---
HPI Consult Data Date of Consult: 02/14/23 HPI Narrative Reason for Consultation: Scrotal cellulitis HPI Narrative: MANUELA GUERRERO, is a 58 M who presents to the hospital with scrotal cellulitis and leukocytosis, CT scan and ultrasound reviewed no sign of abscess no sign of Yaya's on examination no sign of abscess just swollen red erythematous skin no surgical intervention needed at this point just monitor to make sure it does not turn into an abscess continue with IV antibiotics call with questions, he also should elevate the scrotum and ice as necessary [facility] Medical History Chest pain COVID-19 (~01/2020) Essential hypertension Family history of heart disease Mixed hyperlipidemia Home Medications metoprolol tartrate 25 mg tablet 25 mg PO BID BLOOD PRESSURE 05/09/20 [History Last Taken 02/13/23] rosuvastatin 10 mg tablet 10 mg PO DAILY CHOLESTEROL 05/09/20 [History Last Taken Unknown] aspirin 325 mg tablet 325 mg PO DAILY HEART HEALTH 02/13/23 [History Last Taken Unknown] Allergy/AdvReac Type Severity Reaction Status Date / Time No Known Allergies Allergy Verified 02/13/23 15:11 Family History Father CAD (coronary artery disease) Stents X 3 Myocardial infarction Grandfather Myocardial infarction CABG CAD (coronary artery disease) Grandfather Myocardial infarction Surgical History no surgical history Social History household members: significant other housing: house Smoking Status: Light Smoker (<10/day) details: occasional substance use type: does not use caffeine: Yes Type: coffee Number of servings: 1 Lab / Micro Data 02/14/23 06:20 02/13/23 15:50 Labs: Laboratory Results - last 24 hr 02/13/23 15:50: WBC 23.4 H, RBC 4.72, Hgb 14.2, Hct 42.4, MCV 89.8, MCH 30.1, MCHC 33.5, RDW Std Deviation 41.5, RDW Coeff of Eboni 12.4, Plt Count 359, MPV 9.9, Immature Gran % (Auto) 1.200 H, Neut % (Auto) 88.1 H, Lymph % (Auto) 3.7 L, [place] % (Auto) 6.7, Eos % (Auto) 0.0, Baso % (Auto) 0.3, Absolute Neuts (auto) 20.7 H, Absolute Lymphs (auto) 0.86, Nucleated RBC % 0, Differential Comment SCANNED, Diff Path Review June, PT 15.6 H, INR 1.2, APTT 29.5, Sodium 133 L, Potassium 3.3 L, Chloride 102, Carbon Dioxide 21.0, Anion Gap 10, BUN 15, Creatinine 1.07, Estim Creat Clear Calc 76.75, Est GFR (MDRD) Af Amer 91, Est GFR (MDRD) Non-Af 75, BUN/Creatinine Ratio 14.0, Glucose 126 H, Hemoglobin A1c 5.6, Lactic Acid 1.2, Calcium 9.1, Total Bilirubin 2.20 H, AST 15, ALT 18, Alkaline Phosphatase 85, Total Protein 7.9, Albumin 3.3, Globulin 4.6 H, Albumin/Globulin Ratio 0.7 L 02/13/23 16:00: Urine Color Yellow, Urine Clarity Sl. Cloudy, Urine pH 5.0, Ur Specific [place] 1.020, Urine Protein 100 H, Urine Glucose (UA) Normal, Urine Ketones 50 H, Urine Occult Blood 150 H, Urine Nitrite Negative, Urine Bilirubin Negative, Urine Urobilinogen 4 H, Ur Leukocyte Esterase 25 H, Urine RBC 0-5 SEEN, Urine WBC 0-5 SEEN, Ur Squamous Epith Cells 0 SEEN, Urine Bacteria 0 SEEN, Urine Mucus 0 SEEN 02/14/23 06:20: WBC 19.6 H, RBC 3.91 L, Hgb 11.9 L, Hct 35.9 L, MCV 91.8, MCH 30.4, MCHC 33.1, RDW Std Deviation 42.9, RDW Coeff of Eboni 12.8, Plt Count 294, MPV 9.7, Immature Gran % (Auto) 1.100 H, Neut % (Auto) 89.0 H, Lymph % (Auto) 2.8 L, [place] % (Auto) 6.7, Eos % (Auto) 0.1, Baso % (Auto) 0.3, Absolute Neuts (auto) 17.5 H, Absolute Lymphs (auto) 0.54 L, Nucleated RBC % 0 Imagaing Radiology Impression Abdomen/Pelvis CT 02/13/23 15:24 IMPRESSION: No acute process within the abdomen and pelvis. Specifically, no acute appendicitis. Minimal diverticulosis with no signs of diverticulitis. Mild right-sided inguinal lymphadenopathy. Nonspecific bilateral scrotal edema with questionable right cellulitis along the upper scrotum and inguinal region. If indicated, these findings may be further assessed with scrotal ultrasound. Electronically Signed: Rosibel Scott MD at 16:48 EST Reading Location ID and State: [address] [employer] / [employer] , Service support , Testicular Ultrasound 02/13/23 15:24 IMPRESSION: Bilateral scrotal wall edema, right more than left with mild increased vascularity, cannot exclude cellulitis, clinical correlation recommended. No abscess seen. Bilateral large hydroceles with subtle internal echoes which may represent artifact versus sequela of infectious process or prior trauma. Bilateral testes are within normal limits with no intratesticular mass. Normal symmetrical color flow within the testis seen. Electronically Signed: Rosibel Scott MD at 17:38 EST ,
[2023-02-14 07:26] LABS: ALB/GLOB Ratio 0.6 RATIO (0.9-2.4); AST(SGOT) 12 U/L (15-37); Alanine Aminotransfer ALT/SGPT 16 U/L (16-61); Albumin, Serum 2.4 g/dL (3.2-5.0); Alkaline Phosphatase 78 U/L (45-117); Anion Gap 10 (5-15); BUN 16 mg/dL (7-18); BUN/Creat Ratio 11.4 RATIO (10-20); Calcium,Total 7.9 mg/dL (8.5-10.1); Chloride 107 mmol/L (98-107); EST Glomerular Filtration Rate 55 mL/min (>60); Est Glom Filt Rate - Afr Amer 67 mL/min (>60); Estimated Creatinine Clearance 58.66 ml/min; Globulin 4.2 g/dL (2.2-4.2); Glucose 154 mg/dL (74-106); Magnesium 2.2 mg/dL (1.6-2.6); Phosphorus 2.5 mg/dL (2.5-4.9); Potassium 3.5 mmol/L (3.5-5.1); Protein, Total 6.6 g/dL (6.4-8.2); Sodium Level 138 mmol/L (136-145)
[2023-02-14 07:33] LABS: Differential Comment SCANNED
--- NOTE | 2023-02-14 07:51 | PN.HOSP_ITS ---
Subjective Subjective Still with pain in scrotum and penis. States that this symptoms began on Saturday. 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 Thinks he may have scraped it with the jostling that he experiences in the truck cab. Objective Data Objective Data Vital Signs: Vital Signs Temp Pulse Resp BP Pulse Ox O2 Del Method 36.9 C 85 16 152/84 H 99 Room Air 02/14/23 04:40 02/14/23 04:40 02/14/23 04:40 02/14/23 04:40 02/14/23 04:40 02/14/23 04:40 Oxygen Delivery Method Room Air Weight: 97.1 kg Body Mass Index (BMI) 30.7 Intake & Output: Intake and Output for Last 24 Hours 02/12/23 02/13/23 02/14/23 23:59 23:59 23:59 Intake Total 1890 / 1890 2280 / 2280 Balance 1890 / 1890 2280 / 2280 Lab / Micro Data 02/14/23 06:20 02/14/23 06:20 Labs: Laboratory Results - last 24 hr 02/13/23 15:50: WBC 23.4 H, RBC 4.72, Hgb 14.2, Hct 42.4, MCV 89.8, MCH 30.1, MCHC 33.5, RDW Std Deviation 41.5, RDW Coeff of Eboni 12.4, Plt Count 359, MPV 9.9, Immature Gran % (Auto) 1.200 H, Neut % (Auto) 88.1 H, Lymph % (Auto) 3.7 L, [place] % (Auto) 6.7, Eos % (Auto) 0.0, Baso % (Auto) 0.3, Absolute Neuts (auto) 20.7 H, Absolute Lymphs (auto) 0.86, Nucleated RBC % 0, Differential Comment SCANNED, Diff Path Review June foll, PT 15.6 H, INR 1.2, APTT 29.5, Sodium 133 L, Potassium 3.3 L, Chloride 102, Carbon Dioxide 21.0, Anion Gap 10, BUN 15, Creatinine 1.07, Estim Creat Clear Calc 76.75, Est GFR (MDRD) Af Amer 91, Est GFR (MDRD) Non-Af 75, BUN/Creatinine Ratio 14.0, Glucose 126 H, Hemoglobin A1c 5.6, Lactic Acid 1.2, Calcium 9.1, Total Bilirubin 2.20 H, AST 15, ALT 18, Alkaline Phosphatase 85, Total Protein 7.9, Albumin 3.3, Globulin 4.6 H, Albumin/Globulin Ratio 0.7 L 02/13/23 16:00: Urine Color Yellow, Urine Clarity Sl. Cloudy, Urine pH 5.0, Ur Specific [place] 1.020, Urine Protein 100 H, Urine Glucose (UA) Normal, Urine Ketones 50 H, Urine Occult Blood 150 H, Urine Nitrite Negative, Urine Bilirubin Negative, Urine Urobilinogen 4 H, Ur Leukocyte Esterase 25 H, Urine RBC 0-5 SEEN, Urine WBC 0-5 SEEN, Ur Squamous Epith Cells 0 SEEN, Urine Bacteria 0 SEEN, Urine Mucus 0 SEEN 02/14/23 06:20: WBC 19.6 H, RBC 3.91 L, Hgb 11.9 L, Hct 35.9 L, MCV 91.8, MCH 30.4, MCHC 33.1, RDW Std Deviation 42.9, RDW Coeff of Eboni 12.8, Plt Count 294, MPV 9.7, Immature Gran % (Auto) 1.100 H, Neut % (Auto) 89.0 H, Lymph % (Auto) 2.8 L, [place] % (Auto) 6.7, Eos % (Auto) 0.1, Baso % (Auto) 0.3, Absolute Neuts (auto) 17.5 H, Absolute Lymphs (auto) 0.54 L, Nucleated RBC % 0, Differential Comment SCANNED, Sodium 138, Potassium 3.5, Chloride 107, Carbon Dioxide 21.0, Anion Gap 10, BUN 16, Creatinine 1.40 H, Estim Creat Clear Calc 58.66, Est GFR (MDRD) Af Amer 67, Est GFR (MDRD) Non-Af 55 L, BUN/Creatinine Ratio 11.4, Glucose 154 H, Calcium 7.9 L, Phosphorus 2.5, Magnesium 2.2, Total Bilirubin 1.30 H, AST 12 L, ALT 16, Alkaline Phosphatase 78, Total Protein 6.6, Albumin 2.4 L, Globulin 4.2, Albumin/Globulin Ratio 0.6 L Radiography Diagnostic Testing: Radiology Impression Abdomen/Pelvis CT 02/13/23 15:24 IMPRESSION: No acute process within the abdomen and pelvis. Specifically, no acute appendicitis. Minimal diverticulosis with no signs of diverticulitis. Mild right-sided inguinal lymphadenopathy. Nonspecific bilateral scrotal edema with questionable right cellulitis along the upper scrotum and inguinal region. If indicated, these findings may be further assessed with scrotal ultrasound. Electronically Signed: Rosibel Scott MD at 16:48 EST Reading Location ID and State: [email or web address] / [employer], [place] , Service support , Testicular Ultrasound 02/13/23 15:24 IMPRESSION: Bilateral scrotal wall edema, right more than left with mild increased vascularity, cannot exclude cellulitis, clinical correlation recommended. No abscess seen. Bilateral large hydroceles with subtle internal echoes which may represent artifact versus sequela of infectious process or prior trauma. Bilateral testes are within normal limits with no intratesticular mass. Normal symmetrical color flow within the testis seen. Electronically Signed: Rosibel Scott MD at 17:38 EST , Physical Exam Narrative Scrotal erythema. Penile erythema with what appears to be some phimosis. Const alert and no apparent distress HEENT head/scalp atraumatic Neuro moves all extremities and no focal motor deficits Psych affect normal Assessment & Plan Assessment/Plan (1) Cellulitis of penis: (2) Cellulitis of scrotum: (3) Leukocytosis: (4) Hypokalemia: (5) Hyponatremia: (6) Hyperbilirubinemia: PLAN: Plan Severe penile and scrotal cellulitis * Urology consulted. Recommending elevating the scrotum as well as ice. * No signs of Yaya's gangrene on imaging * Antibiotics with vancomycin and pip/tazo * Blood and urine cultures were obtained * Overall, patient reported that is improving. Given the marked erythema, would recommend continuing IV antibiotics for another 24 hours and supportive management in the interim. Mild hyponatremia * resolved. No additional work up at this time. Hypokalemia * Replace with 40 mill equivalents p.o. potassium * Repeat in a.m. * Check a.m. magnesium level Hyperbilirubinemia * Improving. Likely related to acute infection * Repeat lab in a.m.No significant liver pathology noted on CT of the abdomen pelvis Hyperglycemia * Likely 2/2 infection. a1c 5.6 Leukocytosis * 2/2 infection. Improving. Monitor Chronic conditions: * Hypertension-Continue home metoprolol * Hyperlipidemia-Continue home rosuvastatin * Obesity-BMI 34.9. Recommend weight loss, Complicates treatment, prognosis, outcomes * Tobacco abuse-Light smoker-17 g nicotine patch available if desired DVT prophylaxis: enoxaparin. -Lovenox subcu CODE STATUS Full code Charges/Coding Visit Charges Inpatient E&M: 87639 Subs Hosp L2
[2023-02-14] MEDS: Aspirin 325 MG Tablet PO (10:06)
[2023-02-14] MEDS: Metoprolol Tartrate 25 MG Tablet PO ×2 (10:06→23:34)
[2023-02-14] MEDS: oxyCODONE 5 MG Tablet PO ×2 (10:26→18:58)
[2023-02-14 10:45] LABS: Pathologist Review Reviewed
[2023-02-14] MEDS: 0.9% Saline Lock 10 ML Syringe IV (13:04)
--- NOTE | 2023-02-14 15:22 | CASEMGMT ---
BESSY REED Assessment Face to Face with patient for initial transition planning/care coordination assessment. BESSY REED introduced self and role at [facility], pt voices understanding. Pt resting comfortably in bed and is calm. Care providers, pharmacy, and demographics verified. Admitting dx: Scrotal Cellulitis LACE Strata: 1 PCP: No PCP, list provided Specialists: Denies Preferred Pharmacy: [facility] Insurance: [employer] Prescription Benefit: Pt was unsure. Will f/u LNOK: Mariluz Godfrey ([facility]) Living Arrangements: Pt states living in a 2 story home with his SO. Pt reports never using the upstairs. Pt reports there are 4 steps to enter the home and denies issues with these. States independence with ADLs and IADLs. Transportation:Pt and pt SO drives DME: Denies. No needs identified. HHC/SNF: Denies history Pt?s goal/plan: Pt goal is to DC home with his SO. Pt requests a work excuse not and this BESSY REED updates the charge nurse. Charge nurse states she will obtain this for the pt. Pt denies any other questions or concerns at time of assessment. Sara Hidalgo RN, CM
[2023-02-14] MEDS: Atorvastatin Calcium 10 MG Tablet 5 MG PO (23:33)
[2023-02-15] VITALS (7 sets, daily range): BP systolic 123–148; BP diastolic 84–89; PULSE 67–77; RESP 18; TEMP 36.8–37.6; O2SAT 95–98
[2023-02-15] MEDS: Acetaminophen 500 MG Tablet 1000 MG PO ×3 (05:16→21:53)
[2023-02-15 05:39] LABS: Absolute Lymphocyte Count 1.19 X10^3/uL (0.83-4.51); Absolute Neutrophil Count 12.9 X10^3/uL (2.0-7.7); Basophil# 0.04 X10^3/uL; Basophil% 0.2 % (0-1); Eosinophil# 0.11 X10^3/uL; Eosinophils% 0.7 % (0-5); Hematocrit 38.1 % (40-54); Hemoglobin 12.5 g/dL (13.0-16.5); Lymphocyte # 1.19 X10^3/ul (0.83-4.51); Lymphocyte % 7.4 % (19-41); Mean Corp Hgb Conc 32.8 g/dL (32-36); Mean Corpuscular Hgb 30.5 pg (27.0-32.0); Mean Corpuscular Volume 92.9 fL (80-94); Mean Platelet Vol. 9.9 fl (6.2-12.0); Monocyte# 1.54 X10^3/uL; Monocyte% 9.5 % (0-10); NRBC Flagged by Analyzer 0 % (0-5); Neutrophil # 12.92 X10^3/uL (2.7-7.7); Neutrophil % 79.9 % (47-70); POSITIVE DIFFERENTIAL YES; Platelet Count 358 K/mm3 (150-450); RBC Distribution Width CV 12.9 % (11.6-14.6); RBC Distribution Width SD 44.2 fl (35.1-43.9); White Blood Count 16.2 K/mm3 (4.4-11.0)
[2023-02-15 06:01] LABS: Differential Indicated SCAN CRITERIA MET
[2023-02-15 06:07] LABS: Vancomycin, Trough Level 15.5 ug/mL (5.0-15.0)
[2023-02-15 06:20] LABS: Anion Gap 8 (5-15); BUN 14 mg/dL (7-18); BUN/Creat Ratio 9.6 RATIO (10-20); Calcium,Total 8.5 mg/dL (8.5-10.1); Chloride 110 mmol/L (98-107); Creatinine, Serum 1.46 mg/dL (0.70-1.30); EST Glomerular Filtration Rate 53 mL/min (>60); Est Glom Filt Rate - Afr Amer 64 mL/min (>60); Estimated Creatinine Clearance 56.25 ml/min; Glucose 114 mg/dL (74-106); Potassium 3.4 mmol/L (3.5-5.1); Sodium Level 140 mmol/L (136-145)
[2023-02-15] MEDS: Vancomycin HCl 1,500 MG in 0.9% Normal Saline (500mL Bag) 500 ML 250 MG IV ×2 (06:22→21:45)
--- NOTE | 2023-02-15 06:29 | PCM.RX.CS ---
Consult Antibiotic Management Pharmacy has been consulted to manage selected antiobiotic: Vancomycin Type of Intervention Type of Consult: Follow-up Suspected Infection Suspected Infection: Skin/Soft tissue Labs Labs: Sodium 140 mmol/L (136-145) 02/15/23 05:05 Potassium 3.4 mmol/L (3.5-5.1) L 02/15/23 05:05 Chloride 110 mmol/L (98-107) H 02/15/23 05:05 Carbon Dioxide 22.0 mmol/L (21.0-32.0) 02/15/23 05:05 Anion Gap 8 (5-15) 02/15/23 05:05 BUN 14 mg/dL (7-18) 02/15/23 05:05 Creatinine 1.46 mg/dL (0.70-1.30) H 02/15/23 05:05 Est GFR (MDRD) Af Amer 64 mL/min (>60) 02/15/23 05:05 Est GFR (MDRD) Non-Af 53 mL/min (>60) L 02/15/23 05:05 BUN/Creatinine Ratio 9.6 RATIO (10-20) L 02/15/23 05:05 Glucose 114 mg/dL (74-106) H 02/15/23 05:05 Vancomycin Trough 15.5 ug/mL (5.0-15.0) H 02/15/23 05:05 Microbiology Microbiology: Microbiology 02/13/23 16:00 Urine, Clean Catch Urine Culture - Preliminary Culture exhibits no growth. Dosing Weight Weight used for dosin.1 kg Estimated Creatinine Clearance Estimated Creatinine Clearance: 56 Goal Trough Goal Trough: 15-20 mcg/mL Pharmacy Plan for Drug Dosing Pharmacy Plan for Drug Dosing: Vancomycin trough level of 15.5, drawn 15.5hrs post-dose, was within the target range of 15-20. Will continue dosing at 1500mg q12h and draw another trough level in two days. Pharmacy Service will continue to monitor and adjust dosing as required. Follow-Up Labs Follow-Up Labs: Trough: Vancomycin Date/Time Labs Ordered Labs to be done on [date and time ordered]: 02/17/23 @4886
--- NOTE | 2023-02-15 07:13 | PN.HOSP_ITS ---
Reason for Visit Reason for Visit: Diagnoses Elevated white blood cell count, unspecified (02/13/23) Other disorders of bilirubin metabolism (02/13/23) Hypo-osmolality and hyponatremia (02/13/23) Hypokalemia (02/13/23) Cellulitis of corpus cavernosum and penis (02/13/23) Inflammatory disorders of scrotum (02/13/23) Subjective Subjective Overall feeling better. Still has waxing waning periods where he feels good and then valleys when he does not feel as well but overall better. Objective Data Objective Data Vital Signs: Vital Signs Temp Pulse Resp BP Pulse Ox O2 Del Method 37.6 C H 67 18 146/89 H 95 Room Air 02/15/23 05:14 02/15/23 05:14 02/15/23 05:14 02/15/23 05:14 02/15/23 05:14 02/15/23 05:14 Oxygen Delivery Method Room Air Weight: 97.1 kg Body Mass Index (BMI) 30.7 Intake & Output: Intake and Output for Last 24 Hours 02/13/23 02/14/23 02/15/23 23:59 23:59 23:59 Intake Total 1890 / 1890 4510 / 4510 50 / 50 Balance 1890 / 1890 4510 / 4510 50 / 50 Lab / Micro Data 02/15/23 05:05 02/15/23 05:05 Labs: Laboratory Results - last 24 hr 02/13/23 15:50: Diff Path Review Reviewed 02/14/23 06:20: Differential Comment SCANNED, Sodium 138, Potassium 3.5, Chloride 107, Carbon Dioxide 21.0, Anion Gap 10, BUN 16, Creatinine 1.40 H, Estim Creat Clear Calc 58.66, Est GFR (MDRD) Af Amer 67, Est GFR (MDRD) Non-Af 55 L, BUN/Creatinine Ratio 11.4, Glucose 154 H, Calcium 7.9 L, Phosphorus 2.5, Magnesium 2.2, Total Bilirubin 1.30 H, AST 12 L, ALT 16, Alkaline Phosphatase 78, Total Protein 6.6, Albumin 2.4 L, Globulin 4.2, Albumin/Globulin Ratio 0.6 L 02/15/23 05:05: WBC 16.2 H, RBC 4.10 L, Hgb 12.5 L, Hct 38.1 L, MCV 92.9, MCH 30.5, MCHC 32.8, RDW Std Deviation 44.2 H, RDW Coeff of Eboni 12.9, Plt Count 358, MPV 9.9, Immature Gran % (Auto) 2.300 H, Neut % (Auto) 79.9 H, Lymph % (Auto) 7.4 L, [place] % (Auto) 9.5, Eos % (Auto) 0.7, Baso % (Auto) 0.2, Absolute Neuts (auto) 12.9 H, Absolute Lymphs (auto) 1.19, Nucleated RBC % 0, Sodium 140, Potassium 3.4 L, Chloride 110 H, Carbon Dioxide 22.0, Anion Gap 8, BUN 14, Creatinine 1.46 H, Estim Creat Clear Calc 56.25, Est GFR (MDRD) Af Amer 64, Est GFR (MDRD) Non-Af 53 L, BUN/Creatinine Ratio 9.6 L, Glucose 114 H, Calcium 8.5, Vancomycin Trough 15.5 H Micro: Microbiology 02/13/23 16:00 Urine, Clean Catch Urine Culture - Preliminary Culture exhibits no growth. Physical Exam Narrative Still with erythema involving his penis and scrotum but less red. With phimosis around his penis. Patient is uncircumcised. Const alert and no apparent distress Assessment & Plan Assessment/Plan (1) Cellulitis of penis: (2) Cellulitis of scrotum: (3) Leukocytosis: (4) Hypokalemia: (5) Hyponatremia: (6) Hyperbilirubinemia: PLAN: Plan Severe penile and scrotal cellulitis * Urology consulted. Recommending elevating the scrotum as well as ice. * No signs of Yaya's gangrene on imaging * Antibiotics with vancomycin and pip/tazo * Blood and urine cultures were obtained * Overall, patient reported that is improving. Given the marked erythema, would recommend continuing IV antibiotics for another 24 hours and supportive management in the interim. Mild hyponatremia * resolved. No additional work up at this time. Hypokalemia * Replace with 40 mill equivalents p.o. potassium * Repeat in a.m. * Check a.m. magnesium level Hyperbilirubinemia * Improving. Likely related to acute infection * Repeat lab in a.m.No significant liver pathology noted on CT of the abdomen pelvis Hyperglycemia * Likely 2/2 infection. a1c 5.6 Leukocytosis * 2/2 infection. Improving. Monitor Chronic conditions: * Hypertension-Continue home metoprolol * Hyperlipidemia-Continue home rosuvastatin * Obesity-BMI 34.9. Recommend weight loss, Complicates treatment, prognosis, outcomes * Tobacco abuse-Light smoker-17 g nicotine patch available if desired DVT prophylaxis: enoxaparin. -Lovenox subcu CODE STATUS Full code Disposition: Moderate patient overnight. Patient is improving tomorrow, anticipate discharge. Greater than 35 minutes of which greater than 50% of the time was counseling patient at bedside about cellulitis, potential source of cellulitis, potential inoculation of cellulitis, treatment of cellulitis. Charges/Coding Visit Charges Inpatient E&M: 76406 Subs Hosp L2
[2023-02-15 07:24] LABS: Differential Comment SCANNED
[2023-02-15] MEDS: Metoprolol Tartrate 25 MG Tablet PO ×2 (08:21→21:52)
[2023-02-15] MEDS: Aspirin 325 MG Tablet PO (08:22)
[2023-02-15] MEDS: Piperacil/Tazobactam 3.375 GM in 0.9% Normal Saline (50mL MB+) 50 ML IV ×2 (08:40→15:49)
[2023-02-15 13:18] LABS: Pathologist Review Reviewed
[2023-02-15] MEDS: 0.9% Saline Lock 10 ML Syringe IV (21:52)
[2023-02-15] MEDS: Atorvastatin Calcium 10 MG Tablet 5 MG PO (21:53)
[2023-02-16] VITALS (7 sets, daily range): BP systolic 132–158; BP diastolic 85–89; PULSE 68–81; RESP 18; TEMP 36.4–36.8; O2SAT 94–96
[2023-02-16] MEDS: Piperacil/Tazobactam 3.375 GM in 0.9% Normal Saline (50mL MB+) 50 ML IV ×3 (00:13→15:22)
[2023-02-16] MEDS: Vancomycin HCl 1,500 MG in 0.9% Normal Saline (500mL Bag) 500 ML 250 MG IV ×2 (04:49→21:07)
[2023-02-16] MEDS: Acetaminophen 500 MG Tablet 1000 MG PO ×3 (06:08→21:10)
[2023-02-16] MEDS: 0.9% Saline Lock 10 ML Syringe IV ×3 (06:15→21:38)
--- NOTE | 2023-02-16 07:20 | PN.HOSP_ITS ---
Subjective Subjective Still with penile and scrotal edema. Still feels very tired and weak. Objective Data Objective Data Vital Signs: Vital Signs Temp Pulse Resp BP Pulse Ox O2 Del Method 36.5 C L 70 18 158/89 H 95 Room Air 02/16/23 06:01 02/16/23 06:01 02/16/23 06:01 02/16/23 06:01 02/16/23 06:01 02/16/23 06:01 Oxygen Delivery Method Room Air Weight: 97.1 kg Body Mass Index (BMI) 30.7 Intake & Output: Intake and Output for Last 24 Hours 02/14/23 02/15/23 02/16/23 23:59 23:59 23:59 Intake Total 4510 / 4510 1420 / 1420 580 / 580 Balance 4510 / 4510 1420 / 1420 580 / 580 Lab / Micro Data 02/16/23 07:10 02/16/23 07:10 Labs: Laboratory Results - last 24 hr 02/15/23 05:05: Differential Comment SCANNED, Diff Path Review Reviewed Micro: Microbiology 02/13/23 16:00 Urine, Clean Catch Urine Culture - Preliminary Culture exhibits no growth. Physical Exam Const alert and no apparent distress Constitutional Narrative: Decreased erythema and swelling of the penis with festive phimosis. Still with scrotal edema and swelling. No fluctuance appreciated. Decreasing erythema overall. Assessment & Plan Assessment/Plan (1) Cellulitis of penis: (2) Cellulitis of scrotum: (3) Leukocytosis: (4) Hypokalemia: (5) Hyponatremia: (6) Hyperbilirubinemia: PLAN: Plan Severe penile and scrotal cellulitis * Urology consulted. Recommending elevating the scrotum as well as ice. No surgical intervention at this time. * No signs of Yaya's gangrene on imaging * Antibiotics with vancomycin and pip/tazo * Blood and urine cultures were obtained * Overall, patient reported that is improving. Given the marked erythema, would recommend continuing IV antibiotics for another 24 hours and supportive management in the interim. * Would monitor the patient overnight again. Mild hyponatremia * resolved. No additional work up at this time. Hypokalemia * Replace with 40 mill equivalents p.o. potassium * Repeat in a.m. * Check a.m. magnesium level Hyperbilirubinemia * Improving. Likely related to acute infection * Repeat lab in a.m.No significant liver pathology noted on CT of the abdomen pelvis Hyperglycemia * Likely 2/2 infection. a1c 5.6 Leukocytosis * 2/2 infection. Improving. Monitor Chronic conditions: * Hypertension-Continue home metoprolol * Hyperlipidemia-Continue home rosuvastatin * Obesity-BMI 34.9. Recommend weight loss, Complicates treatment, prognosis, outcomes * Tobacco abuse-Light smoker-17 g nicotine patch available if desired DVT prophylaxis: enoxaparin. -Lovenox subcu CODE STATUS Full code Disposition: Moderate patient overnight. Patient is improving tomorrow, anticipate discharge. Greater than 35 minutes of which greater than 50% of the time was counseling patient at bedside about cellulitis, potential source of cellulitis, potential inoculation of cellulitis, treatment of cellulitis. Charges/Coding Visit Charges Inpatient E&M: 16500 Subs Hosp L2
[2023-02-16 07:30] LABS: Absolute Lymphocyte Count 1.16 X10^3/uL (0.83-4.51); Absolute Neutrophil Count 8.9 X10^3/uL (2.0-7.7); Basophil# 0.07 X10^3/uL; Basophil% 0.6 % (0-1); Eosinophil# 0.16 X10^3/uL; Eosinophils% 1.4 % (0-5); Hematocrit 35.1 % (40-54); Hemoglobin 11.4 g/dL (13.0-16.5); Lymphocyte # 1.16 X10^3/ul (0.83-4.51); Lymphocyte % 10.1 % (19-41); Mean Corp Hgb Conc 32.5 g/dL (32-36); Mean Corpuscular Hgb 29.8 pg (27.0-32.0); Mean Corpuscular Volume 91.9 fL (80-94); Mean Platelet Vol. 9.8 fl (6.2-12.0); Monocyte% 8.7 % (0-10); NRBC Flagged by Analyzer 0 % (0-5); Neutrophil # 8.89 X10^3/uL (2.7-7.7); Neutrophil % 77.3 % (47-70); Platelet Count 419 K/mm3 (150-450); RBC Distribution Width CV 12.8 % (11.6-14.6); RBC Distribution Width SD 43.8 fl (35.1-43.9); Red Blood Count 3.82 M/mm3 (4.6-6.2); White Blood Count 11.5 K/mm3 (4.4-11.0)
[2023-02-16 07:47] LABS: Anion Gap 6 (5-15); BUN 13 mg/dL (7-18); BUN/Creat Ratio 9.9 RATIO (10-20); Calcium,Total 8.7 mg/dL (8.5-10.1); Chloride 111 mmol/L (98-107); Creatinine, Serum 1.31 mg/dL (0.70-1.30); EST Glomerular Filtration Rate 60 mL/min (>60); Est Glom Filt Rate - Afr Amer 72 mL/min (>60); Estimated Creatinine Clearance 62.69 ml/min; Glucose 105 mg/dL (74-106); Potassium 3.4 mmol/L (3.5-5.1); Sodium Level 141 mmol/L (136-145)
[2023-02-16] MEDS: Metoprolol Tartrate 25 MG Tablet PO ×2 (10:24→21:15)
[2023-02-16] MEDS: Aspirin 325 MG Tablet PO (10:24)
--- NOTE | 2023-02-16 14:22 | NURSING ---
pt refusing 1400 zosyn because i want to get in the shower for an hour tried to dscuss trough/peaks of antibiotics and that they are timed to try and keep levels in his blood stream-he still refuses to aallow nurse to give 1400 antb and says he will call when he is out of shower in an hour or so
[2023-02-16] MEDS: Atorvastatin Calcium 10 MG Tablet 5 MG PO (21:11)
[2023-02-17] MEDS: Piperacil/Tazobactam 3.375 GM in 0.9% Normal Saline (50mL MB+) 50 ML IV ×2 (00:43→12:18)
[2023-02-17 03:02] VITALS: BP 145/93; PULSE 66; RESP 18; TEMP 36.6; O2SAT 96
[2023-02-17] MEDS: 0.9% Saline Lock 10 ML Syringe IV ×3 (03:20→06:39)
[2023-02-17 06:10] LABS: Vancomycin, Trough Level 25.6 ug/mL (5.0-15.0)
--- NOTE | 2023-02-17 06:26 | PCM.RX.CS ---
Consult Antibiotic Management Pharmacy has been consulted to manage selected antiobiotic: Vancomycin Type of Intervention Type of Consult: Follow-up Suspected Infection Suspected Infection: Skin/Soft tissue Labs Labs: Sodium 141 mmol/L (136-145) 02/16/23 07:10 Potassium 3.4 mmol/L (3.5-5.1) L 02/16/23 07:10 Chloride 111 mmol/L (98-107) H 02/16/23 07:10 Carbon Dioxide 24.0 mmol/L (21.0-32.0) 02/16/23 07:10 Anion Gap 6 (5-15) 02/16/23 07:10 BUN 13 mg/dL (7-18) 02/16/23 07:10 Creatinine 1.31 mg/dL (0.70-1.30) H 02/16/23 07:10 Est GFR (MDRD) Af Amer 72 mL/min (>60) 02/16/23 07:10 Est GFR (MDRD) Non-Af 60 mL/min (>60) 02/16/23 07:10 BUN/Creatinine Ratio 9.9 RATIO (10-20) L 02/16/23 07:10 Glucose 105 mg/dL (74-106) 02/16/23 07:10 Vancomycin Trough 25.6 ug/mL (5.0-15.0) H 02/17/23 04:30 Microbiology Microbiology: Microbiology 02/13/23 15:50 Blood Culture (Wb) - Anticubital Left Blood Culture - Preliminary No growth in 48 hours. 02/13/23 15:50 Blood Culture (Wb) - Anticubital Right Blood Culture - Preliminary No growth in 48 hours. 02/13/23 16:00 Urine, Clean Catch Urine Culture - Final Culture exhibits no growth. Dosing Weight Weight used for dosin.1 kg Estimated Creatinine Clearance Estimated Creatinine Clearance: 63 Goal Trough Goal Trough: 15-20 mcg/mL Pharmacy Plan for Drug Dosing Pharmacy Plan for Drug Dosing: Vancomycin trough level was high at 25.6, however this was drawn just 7.5hrs post-dose due to a delay in the previous dose. Extrapolation estimates a level around 18.1, so will continue dosing at 1500mg q12h. Will draw another trough in 24 hours. Pharmacy Service will continue to monitor and adjust dosing as required. Follow-Up Labs Follow-Up Labs: Trough: Vancomycin Date/Time Labs Ordered Labs to be done on [date and time ordered]: 02/18/23 @0437
[2023-02-17] MEDS: Vancomycin HCl 1,500 MG in 0.9% Normal Saline (500mL Bag) 500 ML 250 MG IV (06:38)
[2023-02-17] MEDS: Acetaminophen 500 MG Tablet 1000 MG PO ×2 (06:39→14:00)
[2023-02-17 06:41] VITALS: BP 158/86; PULSE 66; RESP 20; TEMP 36.5; O2SAT 96
--- NOTE | 2023-02-17 07:12 | PN.HOSP_ITS ---
Subjective Subjective Feels better. Still with swelling in his scrotum. Objective Data Objective Data Vital Signs: Vital Signs Temp Pulse Resp BP Pulse Ox O2 Del Method 36.5 C L 66 20 H 158/86 H 96 Room Air 02/17/23 06:41 02/17/23 06:41 02/17/23 06:41 02/17/23 06:41 02/17/23 06:41 02/17/23 06:41 Oxygen Delivery Method Room Air Weight: 97.1 kg Body Mass Index (BMI) 30.7 Intake & Output: Intake and Output for Last 24 Hours 02/15/23 02/16/23 02/17/23 23:59 23:59 23:59 Intake Total 1420 / 1420 1210 / 1210 580 / 580 Balance 1420 / 1420 1210 / 1210 580 / 580 Lab / Micro Data 02/16/23 07:10 02/16/23 07:10 Labs: Laboratory Results - last 24 hr 02/16/23 07:10: WBC 11.5 H, RBC 3.82 L, Hgb 11.4 L, Hct 35.1 L, MCV 91.9, MCH 29.8, MCHC 32.5, RDW Std Deviation 43.8, RDW Coeff of Eboni 12.8, Plt Count 419, MPV 9.8, Immature Gran % (Auto) 1.900 H, Neut % (Auto) 77.3 H, Lymph % (Auto) 10.1 L, [place] % (Auto) 8.7, Eos % (Auto) 1.4, Baso % (Auto) 0.6, Absolute Neuts (auto) 8.9 H, Absolute Lymphs (auto) 1.16, Nucleated RBC % 0, Sodium 141, Potassium 3.4 L, Chloride 111 H, Carbon Dioxide 24.0, Anion Gap 6, BUN 13, Creatinine 1.31 H, Estim Creat Clear Calc 62.69, Est GFR (MDRD) Af Amer 72, Est GFR (MDRD) Non-Af 60, BUN/Creatinine Ratio 9.9 L, Glucose 105, Calcium 8.7 02/17/23 04:30: Vancomycin Trough 25.6 H Micro: Microbiology 02/13/23 15:50 Blood Culture (Wb) - Anticubital Left Blood Culture - Preliminary No growth in 48 hours. 02/13/23 15:50 Blood Culture (Wb) - Anticubital Right Blood Culture - Preliminary No growth in 48 hours. 02/13/23 16:00 Urine, Clean Catch Urine Culture - Final Culture exhibits no growth. Physical Exam Narrative exam: Decreased penile swelling around the foreskin. Decreased swelling in the scrotum and decreased erythema throughout. Does have some sloughing of some skin but is more superficial and no ulcers appreciated. Const alert Constitutional Narrative: Nontoxic. Afebrile Assessment & Plan Assessment/Plan (1) Cellulitis of penis: (2) Cellulitis of scrotum: (3) Leukocytosis: (4) Hypokalemia: (5) Hyponatremia: (6) Hyperbilirubinemia: PLAN: Plan Patient presents with penile and scrotal cellulitis. No clear lesions but likely patient self contaminated himself. 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 Likely was a confluence of events that led to this. Additionally, patient been unaware of the infection there and had been sick for about a week prior so this is been progressing. Patient responded well with pip-tazo and vancomycin. Patient will be discharged home with doxycycline and Augmentin. Severe penile and scrotal cellulitis * Urology consulted. Recommending elevating the scrotum as well as ice. No surgical intervention at this time. * No signs of Yaya's gangrene on imaging * Antibiotics with vancomycin and pip/tazo * Blood and urine cultures were obtained * Overall, patient reported that is improving. Given the marked erythema, would recommend continuing IV antibiotics for another 24 hours and supportive management in the interim. * Overall improved. Patient will be discharged with Augmentin and doxycycline. Patient advised to wear loosefitting clothing. Patient will be off of work through the first of the year. Mild hyponatremia * resolved. No additional work up at this time. Hypokalemia * Replace with 40 mill equivalents p.o. potassium * Repeat in a.m. * Check a.m. magnesium level Hyperbilirubinemia * Improving. Likely related to acute infection * Repeat lab in a.m.No significant liver pathology noted on CT of the abdomen pelvis Hyperglycemia * Likely 2/2 infection. a1c 5.6 Leukocytosis * 2/2 infection. Improving. Monitor Chronic conditions: * Hypertension-Continue home metoprolol * Hyperlipidemia-Continue home rosuvastatin * Obesity-BMI 34.9. Recommend weight loss, Complicates treatment, prognosis, outcomes * Tobacco abuse-Light smoker-17 g nicotine patch available if desired DVT prophylaxis: enoxaparin. -Lovenox subcu CODE STATUS Full code Disposition: TBD
--- NOTE | 2023-02-17 09:00 | DS.PCM_ITS ---
Providers Date of Admission: 02/13/23 Primary Care Physician: Jaylyn Primary Care Phys Consultations 02/13/23 19:32 Consult: Urology Routine Consulting Provider: Leo Davison Reason for Consult: scrotal cellulitis EMERGENT Consult: No MD Notified: Yes Date Notified: 02/14/23 Time Notified: 00:40 Method of Notification: Verbal Reason For Visit: SCROTAL CELLULITIS Diagnosis Discharge Diagnosis (1) Cellulitis of penis: Status: Acute Code(s): N48.22 - Cellulitis of corpus cavernosum and penis (2) Cellulitis of scrotum: Status: Acute Code(s): N49.2 - Inflammatory disorders of scrotum (3) Leukocytosis: Status: Acute Code(s): D72.829 - Elevated white blood cell count, unspecified (4) Hypokalemia: Status: Acute Code(s): E87.6 - Hypokalemia (5) Hyponatremia: Status: Acute Code(s): E87.1 - Hypo-osmolality and hyponatremia (6) Hyperbilirubinemia: Status: Acute Code(s): E80.6 - Other disorders of bilirubin metabolism Plan Patient presents with penile and scrotal cellulitis. No clear lesions but likely patient self contaminated himself. 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 Likely was a confluence of events that led to this. Additionally, patient been unaware of the infection there and had been sick for about a week prior so this is been progressing. Patient responded well with pip-tazo and vancomycin. Patient will be discharged home with doxycycline and Augmentin. Severe penile and scrotal cellulitis * Urology consulted. Recommending elevating the scrotum as well as ice. No surgical intervention at this time. * No signs of Yaya's gangrene on imaging * Antibiotics with vancomycin and pip/tazo * Blood and urine cultures were obtained * Overall, patient reported that is improving. Given the marked erythema, would recommend continuing IV antibiotics for another 24 hours and supportive management in the interim. * Overall improved. Patient will be discharged with Augmentin and doxycycline. Patient advised to wear loosefitting clothing. Patient will be off of work through the first of the year. Mild hyponatremia * resolved. No additional work up at this time. Hypokalemia * Replace with 40 mill equivalents p.o. potassium * Repeat in a.m. * Check a.m. magnesium level Hyperbilirubinemia * Improving. Likely related to acute infection * Repeat lab in a.m.No significant liver pathology noted on CT of the abdomen pelvis Hyperglycemia * Likely 2/2 infection. a1c 5.6 Leukocytosis * 2/2 infection. Improving. Monitor Chronic conditions: * Hypertension-Continue home metoprolol * Hyperlipidemia-Continue home rosuvastatin * Obesity-BMI 34.9. Recommend weight loss, Complicates treatment, prognosis, outcomes * Tobacco abuse-Light smoker-17 g nicotine patch available if desired DVT prophylaxis: enoxaparin. -Lovenox subcu CODE STATUS Full code Disposition: TBD Medications at Discharge Home Medications metoprolol tartrate 25 mg tablet 25 mg PO BID BLOOD PRESSURE 05/09/20 rosuvastatin 10 mg tablet 10 mg PO DAILY CHOLESTEROL 05/09/20 aspirin 325 mg tablet 325 mg PO DAILY HEART HEALTH 02/13/23 acetaminophen 500 mg tablet 1,000 mg (2 x 500 mg) PO Q8 PRN Pain #30 tabs 02/17/23 amoxicillin 875 mg-potassium clavulanate 125 mg tablet 1 tab PO Q12H #6 tabs 1 04/20/22 doxycycline hyclate 100 mg tablet 100 mg PO BID #6 tabs 02/17/23 ibuprofen 200 mg capsule 600 mg (3 x 200 mg) PO Q6H PRN pain #30 caps 02/17/23 Hospital Course Operations None Procedures None Summary of Care Provided Minutes Spent on Discharge: 32 Weight / BMI Weight Weight: 97.1 kg Body Mass Index (BMI) 30.7 ABG / Lab / Microbiology Data 02/16/23 07:10 02/16/23 07:10 Laboratory: Laboratory Results - last 24 hr 02/17/23 04:30: Vancomycin Trough 25.6 H Microbiology: Microbiology 02/13/23 15:50 Blood Culture (Wb) - Anticubital Left Blood Culture - Preliminary No growth in 48 hours. 02/13/23 15:50 Blood Culture (Wb) - Anticubital Right Blood Culture - Preliminary No growth in 48 hours. 02/13/23 16:00 Urine, Clean Catch Urine Culture - Final Culture exhibits no growth. D/C Instructions Discharge Diet: No restrictions Return to work on: 02/25/23 Call your doctor if your incision/area has: Increased Pain/ Swelling, Increased Redness and Foul Smelling Discharge Meaningful Use Info Meaningful Use Diagnoses (Choose all that apply): None applicable Discharge Plan Admission Admit Date/Time: 02/13/23 17:55 Primary Reason for Your Visit: Penile scrotal cellulitis. Attending Provider: Issa Hines Primary Care Provider: Care Physician,No Primary Consulting Providers: Leo Davison; Lien Lam Instructions Additional Instructions / Restrictions: As you are able, continue to elevate your genitals at home. Wear loosefitting, breathable clothing. Take antibiotics as instructed. Return if swelling and redness worsen. Discharge Orders/Prescriptions Prescriptions: New acetaminophen 500 mg Tablet 1,000 mg PO Q8 PRN (Reason: Pain) Qty: 30 0RF ibuprofen 200 mg capsule 600 mg PO Q6H PRN (Reason: pain) Qty: 30 0RF amoxicillin-pot clavulanate 875-125 mg tablet 1 tab PO Q12H Qty: 6 0RF doxycycline hyclate 100 mg tablet 100 mg PO BID Qty: 6 0RF Continued aspirin 325 mg tablet 325 mg PO DAILY metoprolol tartrate 25 mg tablet 25 mg PO BID rosuvastatin 10 mg tablet 10 mg PO DAILY Patient Comments: PT STATES IT UPSETS THEIR STOMACH SO THEY HAVE NOT BEEN TAKING THIS MEDICATION. PT STATES THEY ARE SUPPOSED TO BE ON THIS MEDICATION ( OF 02-13-23) Referrals / Follow Up: Jamin Benson MD [Non-Staff] - Within 2 Weeks Care Physician,No Primary [Primary Care Provider] - Disposition Disposition (needs filled in before D/C Order can be placed): Home, Self Care Charges/Coding Visit Charges Inpatient E&M: 78575 Disch Hosp >30min
[2023-02-17 10:20] VITALS: BP 148/87; PULSE 83; RESP 18; TEMP 36.4; O2SAT 97
[2023-02-17 10:21] VITALS: PULSE 83
[2023-02-17] MEDS: Aspirin 325 MG Tablet PO (10:21)
[2023-02-17] MEDS: Metoprolol Tartrate 25 MG Tablet PO (10:21)
--- NOTE | 2023-02-17 13:47 | NURSING ---
answered pt's light. pt demanding to talk with terrellyisican. at first would not discuss why. pt then states was related to antibiotic rate of infusion being changed. This nurse talked with Primary RN then in to talk with patient. discussed order for Zosyn change in rate of infusion to help facility pt being able to be discharged and obtaining prescriptions on a holiday as well as pt being able to shower as he wished. discussed dosage of antibiotics. discussed when his ride would be here. pt verbalized frustration regarding his insurance and stress and anxiety in personal life. emotional support given. pt states his ride will not be around until around 5:30p discussed [facility] hrs listed as [facility]-4 as donny mcguire. pt verbalized frustration that he origionally wanted scripts filled at retail pharmacy and delivered to room. pt stated he would not have anyone whom could belt picker the prescriptions by 4pm. discussed situation with pharmacist Jaime. aware per Jaime inpatient rx would be able to assist with filling prescriptions all except the ibuprofen. discussed with patient. pt agreeable to having inpt fill prescriptions, half sheet sent to pharmacy as per protocol. discussed primary RN will DC iv. discussed above with primary RN.
[2023-02-17 15:25] VITALS: BP 135/95; PULSE 84; RESP 18; TEMP 36.8; O2SAT 97
== END 2023-02-17 17:05 | disposition home or self-care (01) | DRG 728 ==
LOC: ED 16:09 → MS3 18:13
PROVIDERS: Internal Medicine; Admitting Provider Internal Medicine; Emergency Provider Emergency Medicine
DX: N48.22 Cellulitis of corpus cavernosum and penis (principal); E87.1 Hypo-osmolality and hyponatremia; I10 Essential (primary) hypertension; E80.6 Other disorders of bilirubin metabolism; F17.200 Nicotine dependence, unspecified, uncomplicated; E87.6 Hypokalemia; E78.5 Hyperlipidemia, unspecified; E66.9 Obesity, unspecified; R73.9 Hyperglycemia, unspecified; N50.89 Other specified disorders of the male genital organs; Z86.16 Personal history of COVID-19; Z68.34 Body mass index [BMI] 34.0-34.9, adult; Z82.49 Family history of ischemic heart disease and other diseases of the circulatory system
CPT/HCPCS: 36415; 74176; 76870; 80048; 80053; 80202; 81001; 83036; 83605; 83735; 84100; 85025; 85610; 85730; 87040; 87086; 93005; 93976; 94668; 99285; J7030; J7040; A4216

== ENCOUNTER → 2023-02-22 | Outpatient (CLI) | payer OTHER, SELFPAY ==
--- NOTE | 2023-02-22 17:58 | US_ITS ---
STUDY: SCROTUM ULTRASOUND REASON FOR EXAM: Male, 58 years old. RT ABSCESS TECHNIQUE: Ultrasound evaluation of the scrotum was performed with color Doppler and static mora-scale imaging. COMPARISON: 02/13/2023 FINDINGS: RIGHT TESTICLE INTRATESTICULAR: There is a normal size of the right testicle. The right testicle measures 3.7 x 3.0 x 1.9 cm. There is a homogenous echotexture. There is normal arterial and normal venous vascularity. There is no demonstrated right testicular mass or cyst. EXTRATESTICULAR: The epididymis is normal in size. The epididymis head measures 1.2 x 1.1 x 1.0 cm. There is normal vascularity of the epididymis. There is no demonstrated epididymal cystic structure. There is a moderate size hydrocele. There is no demonstrated varicocele. There is no demonstrated extratesticular mass or cyst. Skin thickening of the scrotum. LEFT TESTICLE INTRATESTICULAR: There is a normal size of the left testicle. The left testicle measures 4.2 x 2.9 x 2.1 cm. There is a homogenous echotexture. There is normal arterial and normal venous vascularity. There is no demonstrated left testicular mass or cyst. EXTRATESTICULAR: The epididymis is normal in size. The epididymis head measures 1.0 x 1.0 x 0.9 cm. There is normal vascularity of the epididymis. There is no demonstrated epididymal cystic structure. There is a moderate size hydrocele. There is no demonstrated varicocele. There is no demonstrated extratesticular mass or cyst. Skin thickening of the scrotum. US/Testicular with Arterial Flow IMPRESSION: 1. Continued skin thickening of the scrotum possibly consistent with cellulitis. No loculated fluid collection to suggest abscess. 2. Moderate bilateral hydroceles, similar to the prior study.. 3. No testicular torsion. Electronically Signed: Abelardo Alvarez MD at 20:44 EST ,
== END | disposition home or self-care (01) ==
LOC: US 17:53
DX: N49.2 Inflammatory disorders of scrotum (principal)
CPT/HCPCS: 76870; 93976

== ENCOUNTER → 2023-03-14 | Outpatient (CLI) | payer OTHER, SELFPAY ==
--- OUTSIDE RECORDS SUMMARY | 2023-03-14 18:25 | XMS RPT_ITS | CCD ---
Author Name Unknown Address [address] [place] [address] Organization [facility] Care Team Providers Care Miner Pick Name Role Phone Kelsey SECURITY POLICE OFFICER, Deisy Talavera Primary Care Provider DEISY HERNANDEZ Attending Unavailab le HERNANDEZ, DEISY TALAVERA Primary Care Unavailab le Hernandez SECURITY POLICE OFFICER, Deisy Talavera Primary Care Provider DEISY HERNANDEZ Attending Unavailab le HERNANDEZ, DEISY TALAVERA Primary Care Unavailab le HERNANDEZ, DEISY TALAVERA Attending Unavailab le HERNANDEZ, DEISY TALAVERA Primary Care Unavailab le HERNANDEZ, DEISY TALAVERA Primary Care Unavailab le HERNANDEZ, DEISY TALAVERA Attending Unavailab le HERNANDEZ, DEISY TALAVERA Primary Care Unavailab le CORBEAN, NILSA BELTRAN Attending Unavaila ble HERNANDEZ, DEISY TALAVERA Attending Unavailab le HERNANDEZ, DEISY TALAVERA Primary Care Unavailab le HERNANDEZ, DEISY TALAVERA Attending Unavailab le HERNANDEZ, DEISY TALAVERA Primary Care Unavailab le CORBEAN, NILSA BELTRAN Attending Unavaila ble HERNANDEZ, DEISY TALAVERA Primary Care Unavailab le Medications Current Medications Medication Drug Class(es) Dates Sig (Normalized) Sig (Original) amoxicillin 875 mg / clavulanate 125 mg oral tablet (8 sources) Penicillin-class Antibacterial Start: 02-17-2023 End: 02-28-2023 take 1 tablet by mouth once amoxicillin-clavula manuel (AUGMENTIN) 875-125 mg per tablet Indications: Scrotal abscess Take 1 (one) tablet by mouth every 12 (twelve) hours . 14 tablet 0 02/28/2023 Active aspirin 81 mg delayed release oral tablet (10 sources) Platelet Aggregation Inhibitor, Nonsteroidal Anti-inflammatory Drug Start: 05-26-2020 aspirin 81 MG EC tablet Take 1 (one) tablet (81 mg total) by mouth . 0 05/26/2020 Active doxycycline hyclate 100 mg oral tablet (9 sources) Tetracycline-class Drug Start: 02-17-2023 End: 03-07-2023 take 1 tablet by mouth twice daily doxycycline hyclate (VIBRA-TABS) 100 MG tablet Indications: Scrotal abscess Take 1 (one) tablet (100 mg total) by mouth 2 (two) times a day . 14 tablet 0 02/20/2023 Active hydrOXYzine pamoate 25 mg oral capsule (6 sources) Antihistamine Start: 02-20-2023 End: 02-20-2024 take 1 capsule by mouth three times daily as needed for anxiety hydrOXYzine (VISTARIL) 25 MG capsule Indications: Anxiety Take 1 (one) capsule (25 mg total) by mouth 3 (three) times a day as needed for anxiety . 90 capsule 0 02/20/2023 02/20/2024 Active metoprolol tartrate 25 mg oral tablet (15 sources) beta-Adrenergic Torri Start: 05-09-2020 End: 02-20-2023 take 1 tablet by mouth twice daily metoprolol tartrate (LOPRESSOR) 25 MG tablet Indications: Primary hypertension Take 1 (one) tablet (25 mg total) by mouth 2 (two) times a day . 180 tablet 0 02/20/2023 Active rosuvastatin calcium 10 mg oral tablet (13 sources) HMG-CoA Reductase Inhibitor Start: 05-09-2020 End: 01-22-2023 take 1 tablet by mouth once daily rosuvastatin (CRESTOR) 10 MG tablet Indications: Mixed hyperlipidemia TAKE ONE TABLET BY MOUTH NIGHTLY 90 tablet 0 01/22/2023 Active Problems Active Problems Problem Classification Problem Date Documented Da te Episodic/Chronic Anxiety disorders (3 sources) Anxiety; Translations: [Anxiety disorder, unspecified] Onset: 02-20-2023 02-20-2023 Chronic Diabetes mellitus without complication (3 sources) Increased glucose level; Translations: [Other abnormal glucose] Onset: 02-20-2023 02-20-2023 Episodic Disorders of lipid metabolism (6 sources) Mixed hyperlipidemia; Translations: [Mixed hyperlipidemia] Onset: 02-20-2023 05-29-2022 Chronic Essential hypertension (7 sources) Essential hypertension; Translations: [Essential (primary) hypertension] Onset: 02-20-2023 05-29-2022 Chronic Inflammatory conditions of male genital organs (8 sources) Abscess of scrotum; Translations: [Inflammatory disorders of scrotum] Onset: 03-03-2023 02-20-2023 Episodic Nonspecific chest pain (5 sources) Chest discomfort; Translations: [Other chest pain] Onset: 03-04-2023 03-05-2023 Episodic Other male genital disorders (2 sources) Swelling of scrotum ; Translations: [Other specified disorders of the male genital organs] 02-20-2023 Episodic Other male genital disorders (2 sources) Other specified disorders of the male genital organs; Translations: [Other specified disorders of the male genital organs] Onset: 02-20-2023 Episodic Other screening for suspected conditions (not mental disorders or infectious disease) (4 sources) Encounter for screening for malignant neoplasm of prostate; Translations: [Encounter for screening for malignant neoplasm of colon] Onset: 02-20-2023 Episodic Past or Other Problems Problem Classification Problem Date Documented Da te Episodic/Chronic Administrative/social admission (6 sources) Patient encounter status; Translations: [Persons encountering health services in other specified circumstances] Onset: 05-29-2022 05-29-2022 Episodic Results Test Name Value Interpretation Reference Range Facil ity Vital Signs Date Time Vital Sign Value Performing Clinician Amita baires 03-11-2023 16:16-0500 Diastolic blood pressure 99 mm[Hg] Deisy Hernandez SEC[employer]ITY POLICE OFFICER Work Phone: [facility] 03-11-2023 16:16-0500 Systolic blood pressure 140 mm[Hg] Deisy Hernandez SECURITY POLICE OFFICER Work Phone: [facility] 03-11-2023 16:09-0500 Body height 175.3 cm Deisy Hernandez SECURITY POLICE OFFICER Work Phone: [facility] 03-11-2023 16:09-0500 Body mass index (BMI) [Ratio] 35.8 kg/m2 Deisy Hernandez SECURITY POLICE OFFICER Work Phone: [facility] 03-11-2023 16:09-0500 Body temperature 98.29 [degF] Deisy Hernandez SECURITY POLICE OFFICER Work Phone: [facility] 03-11-2023 16:09-0500 Body weight 109.95 kg Deisy Hernandez SECURITY POLICE OFFICER Work Phone: [facility] 03-11-2023 16:09-0500 Heart rate 82 /min Deisy Hernandez SECURITY POLICE OFFICER Work Phone: [facility] 03-11-2023 16:09-0500 Respiratory rate 15 /min Deisy Hernandez SECURITY POLICE OFFICER Work Phone: [facility] 03-11-2023 16:09-0500 SaO2% (BldA) [Mass fraction] 97 % Deisy Hernandez SECURITY POLICE OFFICER Work Phone: [facility] 03-04-2023 15:26-0500 Diastolic blood pressure 80 mm[Hg] Nilsa Kee MD Work Phone: [facility] 03-04-2023 15:26-0500 Systolic blood pressure 122 mm[Hg] Nilsa Kee MD Work Phone: [facility] 03-04-2023 14:23-0500 Body height 175.3 cm Nilsa Kee MD Work Phone: [facility] 03-04-2023 14:23-0500 Body mass index (BMI) [Ratio] 34.7 kg/m2 Nilsa Kee MD Work Phone: [facility] 03-04-2023 14:23-0500 Body temperature 97.59 [degF] Nilsa Kee MD Work Phone: [facility] 03-04-2023 14:23-0500 Body weight 106.59 kg Nilsa Kee MD Work Phone: [facility] 03-04-2023 14:23-0500 Heart rate 79 /min Nilsa Kee MD Work Phone: [facility] 03-04-2023 14:23-0500 Respiratory rate 18 /min Nilsa Kee MD Work Phone: [facility] 03-04-2023 14:23-0500 SaO2% (BldA) [Mass fraction] 98 % Nilsa Kee MD Work Phone: [facility] 02-28-2023 14:39-0500 Body height 175.3 cm Nilsa Kee MD Work Phone: [facility] 02-28-2023 14:39-0500 Body mass index (BMI) [Ratio] 35 kg/m2 Nilsa Kee MD Work Phone: [facility] 02-28-2023 14:39-0500 Body temperature 97.2 [degF] Nilsa Kee MD Work Phone: [facility] 02-28-2023 14:39-0500 Body weight 107.5 kg Nilsa Kee MD Work Phone: [facility] 02-28-2023 14:39-0500 Diastolic blood pressure 88 mm[Hg] Nilsa Kee MD Work Phone: [facility] 02-28-2023 14:39-0500 Heart rate 83 /min Nilsa Kee MD Work Phone: [facility] 02-28-2023 14:39-0500 Respiratory rate 16 /min Nilsa Kee MD Work Phone: [facility] 02-28-2023 14:39-0500 SaO2% (BldA) [Mass fraction] 96 % Nilsa Kee MD Work Phone: [facility] 02-28-2023 14:39-0500 Systolic blood pressure 123 mm[Hg] Nilsa Kee MD Work Phone: [facility] 02-20-2023 14:19-0500 Diastolic blood pressure 98 mm[Hg] Deisy Hernandez SECURITY POLICE OFFICER Work Phone: [facility] 02-20-2023 14:19-0500 Systolic blood pressure 151 mm[Hg] Deisy Hernandez SECURITY POLICE OFFICER Work Phone: [facility] 02-20-2023 14:17-0500 Body height 175.3 cm Deisy Hernandez SECURITY POLICE OFFICER Work Phone: [facility] 02-20-2023 14:17-0500 Body mass index (BMI) [Ratio] 35.59 kg/m2 Deisy Hernandez SECURITY POLICE OFFICER Work Phone: [facility] 02-20-2023 14:17-0500 Body weight 109.32 kg Deisy Hernandez SECURITY POLICE OFFICER Work Phone: [facility] 02-20-2023 14:17-0500 Heart rate 61 /min Deisy Hernandez SECURITY POLICE OFFICER Work Phone: [facility] 02-20-2023 14:17-0500 SaO2% (BldA) [Mass fraction] 98 % Deisy Hernandez SECURITY POLICE OFFICER Work Phone: [facility] 05-29-2022 11:03-0400 Diastolic blood pressure 87 mm[Hg] Deisy Hernandez SECURITY POLICE OFFICER Work Phone: [facility] 05-29-2022 11:03-0400 Systolic blood pressure 138 mm[Hg] Deisy Hernandez SECURITY POLICE OFFICER Work Phone: [facility] 05-29-2022 10:56-0400 Body height 175.3 cm Deisy Hernandez SECURITY POLICE OFFICER Work Phone: [facility] 05-29-2022 10:56-0400 Body mass index (BMI) [Ratio] 35.38 kg/m2 Deisy Hernandez SECURITY POLICE OFFICER Work Phone: [facility] 05-29-2022 10:56-0400 Body temperature 96.3 [degF] Deisy Hernandez SECURITY POLICE OFFICER Work Phone: [facility] 05-29-2022 10:56-0400 Body weight 108.68 kg Deisy Hernandez SECURITY POLICE OFFICER Work Phone: [facility] 05-29-2022 10:56-0400 Heart rate 67 /min Deisy Hernandez SECURITY POLICE OFFICER Work Phone: [facility] 05-29-2022 10:56-0400 Respiratory rate 15 /min Deisy Hernandez SECURITY POLICE OFFICER Work Phone: [facility] 05-29-2022 10:56-0400 SaO2% (BldA) [Mass fraction] 97 % Deisy Hernandez SECURITY POLICE OFFICER Work Phone: [facility] Encounters Encounter Date Encounter Type Care Provider Facility Start: 03-11-2023 End: 03-11-2023 ambulatory DEISY HERNANDEZ [facility] Start: 03-11-2023 End: 03-11-2023 Office outpatient visit 15 minutes Deisy Hernandez SECURITY [employer]ICE OFFICER Work Phone: [facility] [place] Procedures Date Procedure Procedure Detail Performing Clinician Start: 03-04-2023 Ecg routine ecg w/le ast 12 lds w/i&r Nilsa Kee MD Work Phone: Start: 02-20-2023 PSA screening DEISY SNIDER Plan of Treatment Date Care Activity Detail Author Start: 02-20-2025 Prostate specific an tigen measurement PSA Level [facility] Start: 08-25-2023 Influenza vaccination Sequenti al Influenza Vaccine (#1) [facility] Payers Date Payer Category Payer Unknown [employer] [facility] [employer] [id number] 2019-Present [phone] [address] [place] [address] [id number] 2019 Unknown [id number] 1965 Unknown [id number] 1964 Unknown [id number] 1964 Unknown [id number] 1964 Unknown [id number] 1964 Unknown [id number] 1964 Unknown [id number] 1964 Unknown [id number] Unknown [id number] Social History Date Type Detail Facility Start: 05-29-2022 Tobacco smoking status NHIS Never sm oked tobacco [facility] Start: 05-29-2022 Tobacco use and exposure Smokeless t obacco non-user [facility] Start: 05-29-2022 End: 03-11-2023 Alcohol intake Lifetime non-drinker (finding) [facility] Start: 05-29-2022 End: 03-11-2023 History of Social function [facility] Start: 05-29-2022 End: 03-11-2023 Overall Financial Resource Strain (CARDIA) [facility] How hard is it for y ou to pay for the very basics like food, housing, medical care, and heating Not very hard [facility] (I/We) worried donta er (my/our) food would run out before (I/we) got money to buy more. Never true [facility] In the past 12 month s, has lack of transportation kept you from medical appointments or from getting medications? No [facility] Start: 1965 Sex Assigned At Not on file [facility] Start: 05-29-2022 Gender identity Identifies as male gender (finding) [facility] Start: 05-29-2022 Sexual orientation Heterosexual (fin ding) [facility] Start: 05-19-2022 End: 05-29-2022 Exposure to SARS-CoV-2 (event) Not sure [facility] Clinical Notes 05-29-2022 to 03-11-2023 Rasheeda Gallardo LPN - 03/11/2023 4:44 PM Deisy Kaur CNP - 03/11/2023 4:41 PM ESTAssessment & Plan Note - Nilsa Kee MD - 03/05/2023 12:19 PM EST Note Date & Type Note Facility 03-11-2023 History of Presen t illness Narrative Examination chaperoned by Rasheeda Gallardo. Subjective Patient ID: Manuela Guerrero is a 58 y.o. male. Pt is here for 1 week follow up since being seen in office for cont surveillance and management scrotal abscess. Pt was recommended to have repeat scrotal US as well as referral to urology. He was initially declining both and asking for continued antibiotic. He is not experiencing pain, but states texture R scrotal sac is not normal and there is still firmness not noted prior to abscess. No problem-specific Assessment & Plan notes found for this encounter. Current Outpatient Medications Medication Sig Dispense Refill aspirin 81 MG EC tablet Take 1 (one) tablet (81 mg total) by mouth . hydrOXYzine (VISTARIL) 25 MG capsule Take 1 (one) capsule (25 mg total) by mouth 3 (three) times a day as needed for anxiety . 90 capsule 0 metoprolol tartrate (LOPRESSOR) 25 MG tablet Take 1 (one) tablet (25 mg total) by mouth 2 (two) times a day . 180 tablet 0 rosuvastatin (CRESTOR) 10 MG tablet TAKE ONE TABLET BY MOUTH NIGHTLY 90 tablet 0 amoxicillin-clavulanate (AUGMENTIN) 875-125 mg per tablet Take 1 (one) tablet by mouth every 12 (twelve) hours . (Patient not taking: Reported on 03/11/2023 .) 14 tablet 0 doxycycline hyclate (VIBRA-TABS) 100 MG tablet Take 1 (one) tablet (100 mg total) by mouth 2 (two) times a day . (Patient not taking: Reported on 03/11/2023 .) 14 tablet 0 No current facility-administered medications for this visit. The following portions of the patient's history were reviewed and updated as appropriate: allergies, current medications, past family history, past medical history, past social history, past surgical history, and problem list. Past Medical History: Diagnosis Date Hyperlipidemia Hypertension No past surgical history on file. Family History Problem Relation Age of Onset Hypertension Father Coronary artery disease Father Asthma Maternal Grandmother Coronary artery disease Maternal Grandfather Cancer Paternal Grandmother Coronary artery disease Paternal Grandfather Review of Systems Genitourinary: Positive for scrotal swelling. Objective Physical Exam Exam conducted with a improvement spec present. Constitutional: Appearance: Normal appearance. Pulmonary: Effort: Pulmonary effort is normal. Genitourinary: Testes: Right: Swelling present. Skin: General: Skin is warm and dry. Neurological: Mental Status: He is alert. Psychiatric: Attention and Perception: Attention normal. Mood and Affect: Mood is anxious. Assessment/Plan: Diagnoses and all orders for this visit: Scrotal swelling Comments: recommend US R scrotal sac. Antibiotics have not been extended. Pt lm return to work Orders: - US Testicle With Color Flow; Future ? documented in this encounter [facility] 03-05-2023 Evaluation + Plan note Associ ated Problem(s): Scrotal abscess Most recent US showed resolution of abscess and persistent cellulitis. Abx course extended by 1 week. Pt notes improvement but still some persistent discomfort. Referral already placed to urology. Will recheck scrotal US today. Continue abx. Work note provided. F/u in 1 week. [facility] 03-05-2023 Miscellaneous Notes Associate d Problem(s): Scrotal abscess Most recent US showed resolution of abscess and persistent cellulitis. Abx course extended by 1 week. Pt notes improvement but still some persistent discomfort. Referral already placed to urology. Will recheck scrotal US today. Continue abx. Work note provided. F/u in 1 week. Associated Problem(s): Chest discomfort Likely secondary to GI upset from abx. EKG unremarkable. Pt notes he had stress test and full cardiac workup a couple years ago at [place] that was unremarkable. Did ask bp to get records. documented in this encounter [facility] 03-05-2023 Evaluation + Plan note Associ ated Problem(s): Chest discomfort Likely secondary to GI upset from abx. EKG unremarkable. Pt notes he had stress test and full cardiac workup a couple years ago at [place] that was unremarkable. Did ask bp to get records. [facility] 03-04-2023 Instructions Nilsa Kee MD - 03/04/2023 2:43 PM EST Central Scheduling at [phone] Please keep home blood pressure log until next appointment documented in this encounter [facility] 03-04-2023 History of Presen t illness Narrative [facility] [place] Assessment and Plan: Problem List Items Addressed This Visit Scrotal abscess - Primary Most recent US showed resolution of abscess and persistent cellulitis. Abx course extended by 1 week. Pt notes improvement but still some persistent discomfort. Referral already placed to urology. Will recheck scrotal US today. Continue abx. Work note provided. F/u in 1 week. Relevant Orders US Testicle With Color Flow Chest discomfort Likely secondary to GI upset from abx. EKG unremarkable. Pt notes he had stress test and full cardiac workup a couple years ago at [place] that was unremarkable. Did ask bp to get records. Relevant Orders ECG 12 Lead (Completed) For any new medications prescribed today, patient was educated about indications for the medication, how to take the medication and potential side effects of the medications. Nilsa Kee M.D 03/05/23 Subjective: Scrotal- Swelling decreased. Discomfort improved. No fever. Occasional chills. No n/v. Pt had abdominal pain that radiated up into chest this morning. Lasted a few minutes. No shortness of breath. Pt notes some sweating earlier. No history of [place]. No headaches/vision changes. Does not check bp at home. Review of Systems Constitutional: Positive for chills. Negative for fever. Eyes: Negative for visual disturbance. Respiratory: Positive for chest tightness. Negative for shortness of breath. Cardiovascular: Negative for palpitations. Gastrointestinal: Negative for nausea and vomiting. Genitourinary: Positive for scrotal swelling and testicular pain. Neurological: Negative for headaches. Patient's Medications New Prescriptions No medications on file Previous Medications AMOXICILLIN-CLAVULANATE (AUGMENTIN) 875-125 MG PER TABLET Take 1 (one) tablet by mouth every 12 (twelve) hours . ASPIRIN 81 MG EC TABLET Take 1 (one) tablet (81 mg total) by mouth . DOXYCYCLINE HYCLATE (VIBRA-TABS) 100 MG TABLET Take 1 (one) tablet (100 mg total) by mouth 2 (two) times a day . DOXYCYCLINE HYCLATE (VIBRA-TABS) 100 MG TABLET Take 1 (one) tablet (100 mg total) by mouth 2 (two) times a day for 7 days . HYDROXYZINE (VISTARIL) 25 MG CAPSULE Take 1 (one) capsule (25 mg total) by mouth 3 (three) times a day as needed for anxiety . METOPROLOL TARTRATE (LOPRESSOR) 25 MG TABLET Take 1 (one) tablet (25 mg total) by mouth 2 (two) times a day . ROSUVASTATIN (CRESTOR) 10 MG TABLET TAKE ONE TABLET BY MOUTH NIGHTLY Modified Medications No medications on file Discontinued Medications No medications on file I reviewed and updated the following as appropriate: Problem list, current medications, and allergies. Objective: BP 122/80 Pulse 79 Temp 97.6 F (36.4 C) Resp 18 Ht 5' 9 Wt 106.6 kg (235 lb) SpO2 98% BMI 34.70 kg/m Physical Exam Constitutional: General: He is not in acute distress. Appearance: Normal appearance. He is not ill-appearing, toxic-appearing or diaphoretic. Cardiovascular: Rate and Rhythm: Normal rate and regular rhythm. Heart sounds: Normal heart sounds. Pulmonary: Effort: Pulmonary effort is normal. No respiratory distress. Breath sounds: Normal breath sounds. Musculoskeletal: Right lower leg: No edema. Left lower leg: No edema. Skin: General: Skin is warm and dry. Neurological: General: No focal deficit present. Mental Status: He is alert and oriented to person, place, and time. Psychiatric: Mood and Affect: Mood normal. Behavior: Behavior normal. Thought Content: Thought content normal. Judgment: Judgment normal. documented in this encounter [facility] 03-03-2023 Evaluation + Plan note Associ ated Problem(s): Scrotal abscess Pt found to have scrotal abscess a few weeks ago. S/p 7 days of augmentin and doxy. Urology referral placed but pt has not heard back yet. US of testicle done a couple days ago that shows that abscess is resolved but cellulitis still present. Will extend antibiotic course for 7 more days. F/u on Saturday, consider rechecking US at that time. ED precautions given. New referral placed to urology. [facility] 03-03-2023 Miscellaneous Notes Associate d Problem(s): Scrotal abscess Pt found to have scrotal abscess a few weeks ago. S/p 7 days of augmentin and doxy. Urology referral placed but pt has not heard back yet. US of testicle done a couple days ago that shows that abscess is resolved but cellulitis still present. Will extend antibiotic course for 7 more days. F/u on Saturday, consider rechecking US at that time. ED precautions given. New referral placed to urology. documented in this encounter [facility] 02-28-2023 History of Presen t illness Narrative [facility] [place] Assessment and Plan: Problem List Items Addressed This Visit Scrotal abscess Pt found to have scrotal abscess a few weeks ago. S/p 7 days of augmentin and doxy. Urology referral placed but pt has not heard back yet. US of testicle done a couple days ago that shows that abscess is resolved but cellulitis still present. Will extend antibiotic course for 7 more days. F/u on Saturday, consider rechecking US at that time. ED precautions given. New referral placed to urology. Relevant Medications amoxicillin-clavulanate (AUGMENTIN) 875-125 mg per tablet Other Relevant Orders Ambulatory referral to Urology For any new medications prescribed today, patient was educated about indications for the medication, how to take the medication and potential side effects of the medications. Nilsa Kee M.D 03/03/23 Subjective: Pt went to ER a few weeks ago and found to have scrotal abscess on right side. Just completed 7 days of augmentin and doxycycline. Urology referral placed. Pt had US of testicle done on 02/26 that does not show abscess but shows cellulitis. Review of Systems Constitutional: Negative for chills and fever. Gastrointestinal: Negative for nausea and vomiting. Genitourinary: Positive for scrotal swelling and testicular pain. Negative for dysuria, hematuria, penile discharge, penile pain and penile swelling. Patient's Medications New Prescriptions DOXYCYCLINE HYCLATE (VIBRA-TABS) 100 MG TABLET Take 1 (one) tablet (100 mg total) by mouth 2 (two) times a day for 7 days . Previous Medications ASPIRIN 81 MG EC TABLET Take 1 (one) tablet (81 mg total) by mouth . DOXYCYCLINE HYCLATE (VIBRA-TABS) 100 MG TABLET Take 1 (one) tablet (100 mg total) by mouth 2 (two) times a day . HYDROXYZINE (VISTARIL) 25 MG CAPSULE Take 1 (one) capsule (25 mg total) by mouth 3 (three) times a day as needed for anxiety . METOPROLOL TARTRATE (LOPRESSOR) 25 MG TABLET Take 1 (one) tablet (25 mg total) by mouth 2 (two) times a day . ROSUVASTATIN (CRESTOR) 10 MG TABLET TAKE ONE TABLET BY MOUTH NIGHTLY Modified Medications Modified Medication Previous Medication AMOXICILLIN-CLAVULANATE (AUGMENTIN) 875-125 MG PER TABLET amoxicillin-clavulanate (AUGMENTIN) 875-125 mg per tablet Take 1 (one) tablet by mouth every 12 (twelve) hours . Take 1 (one) tablet by mouth every 12 (twelve) hours . Discontinued Medications No medications on file I reviewed and updated the following as appropriate: Problem list, current medications, and allergies. Objective: BP 123/88 Pulse 83 Temp 97.2 F (36.2 C) Resp 16 Ht 5' 9 Wt 107.5 kg (237 lb) SpO2 96% BMI 35.00 kg/m Physical Exam Constitutional: General: He is not in acute distress. Appearance: Normal appearance. He is not ill-appearing, toxic-appearing or diaphoretic. Cardiovascular: Rate and Rhythm: Normal rate and regular rhythm. Heart sounds: Normal heart sounds. Pulmonary: Effort: Pulmonary effort is normal. No respiratory distress. Breath sounds: Normal breath sounds. Genitourinary: Penis: Normal. Comments: Right scrotal erythema and skin thickening, some mild tenderness to palpaiton Skin: General: Skin is warm and dry. Neurological: General: No focal deficit present. Mental Status: He is alert and oriented to person, place, and time. Psychiatric: Mood and Affect: Mood normal. Behavior: Behavior normal. Thought Content: Thought content normal. Judgment: Judgment normal. documented in this encounter [facility] 02-20-2023 History of Presen t illness Narrative Examination chaperoned by Mimi Mera. Subjective Patient ID: Manuela Guerrero is a 58 y.o. male. Pt is here for hospital follow up. He was admitted to [facility] on 02/13/2023 after having aggressive intercourse using a penile ring. He had both scrotal US and CT and at that time, abscess was ruled out. He did meet SIRS criteria and was on IV antibiotics x 4 days. He is just completing Augmentin and Doxycycline. He notes improvement in sx, but is still experiencing chills, feeling of generalized malaise and scrotal sac is now firm and painful Testicle Pain The patient's primary symptoms include a genital injury, scrotal swelling (R side) and testicular pain. This is a new problem. The current episode started in the past 7 days. The problem occurs constantly. The problem has been gradually improving. The pain is moderate. Associated symptoms include anorexia, chills and headaches. There is A penile injury. The problem affects the right side. Injury mechanism: friction and constriction. The testicular pain affects the right testicle. There is swelling in the right testicle. The color of the testicles is Red. The symptoms are aggravated by activity and tactile pressure. He has tried antibiotics, a cold pack, elevation, OTC analgesics and rest for the symptoms. The treatment provided mild relief. He is sexually active. It is unknown whether or not his partner has an STD. His past medical history is significant for an erectile aid use. No problem-specific Assessment & Plan notes found for this encounter. Current Outpatient Medications Medication Sig Dispense Refill aspirin 81 MG EC tablet Take 1 (one) tablet (81 mg total) by mouth . rosuvastatin (CRESTOR) 10 MG tablet TAKE ONE TABLET BY MOUTH NIGHTLY 90 tablet 0 amoxicillin-clavulanate (AUGMENTIN) 875-125 mg per tablet Take 1 (one) tablet by mouth every 12 (twelve) hours . 14 tablet 0 doxycycline hyclate (VIBRA-TABS) 100 MG tablet Take 1 (one) tablet (100 mg total) by mouth 2 (two) times a day . 14 tablet 0 hydrOXYzine (VISTARIL) 25 MG capsule Take 1 (one) capsule (25 mg total) by mouth 3 (three) times a day as needed for anxiety . 90 capsule 0 metoprolol tartrate (LOPRESSOR) 25 MG tablet Take 1 (one) tablet (25 mg total) by mouth 2 (two) times a day . 180 tablet 0 No current facility-administered medications for this visit. The following portions of the patient's history were reviewed and updated as appropriate: allergies, current medications, past family history, past medical history, past social history, past surgical history, and problem list. Past Medical History: Diagnosis Date Hyperlipidemia Hypertension No past surgical history on file. Family History Problem Relation Age of Onset Hypertension Father Coronary artery disease Father Asthma Maternal Grandmother Coronary artery disease Maternal Grandfather Cancer Paternal Grandmother Coronary artery disease Paternal Grandfather Review of Systems Constitutional: Positive for chills, diaphoresis and fatigue. HENT: Negative. Eyes: Negative. Respiratory: Negative. Cardiovascular: Negative. Gastrointestinal: Positive for anorexia. Endocrine: Negative. Genitourinary: Positive for scrotal swelling (R side) and testicular pain. Skin: Positive for color change. Allergic/Immunologic: Negative. Neurological: Positive for headaches. Hematological: Negative. Psychiatric/Behavioral: The patient is nervous/anxious. Objective Physical Exam Constitutional: Appearance: Normal appearance. Genitourinary: Penis: Normal and circumcised. Testes: Right: Tenderness and swelling present. Skin: Findings: Erythema present. Neurological: Mental Status: He is alert and oriented to person, place, and time. Psychiatric: Mood and Affect: Mood normal. Behavior: Behavior normal. Assessment/Plan: Diagnoses and all orders for this visit: Scrotal swelling Comments: urgent referral urology Orders: - Ambulatory referral to Urology; Future Scrotal abscess Comments: suspect abscess has formed R scrotum. Renew Jinny wright, US ordered, rec moist heat to R scrotum Orders: - doxycycline hyclate (VIBRA-TABS) 100 MG tablet; Take 1 (one) tablet (100 mg total) by mouth 2 (two) times a day . - amoxicillin-clavulanate (AUGMENTIN) 875-125 mg per tablet; Take 1 (one) tablet by mouth every 12 (twelve) hours . - US Testicle With Color Flow; Future Primary hypertension Comments: Elevated B/P at office visit, Med refill Orders: - metoprolol tartrate (LOPRESSOR) 25 MG tablet; Take 1 (one) tablet (25 mg total) by mouth 2 (two) times a day . Mixed hyperlipidemia Comments: Pt stopped taking Atorvastatin, Re check lipids Orders: - Lipid Panel; Future Elevated glucose Comments: Check A1c Orders: - Hemoglobin A1c; Future Prostate cancer screening Comments: PSA Orders: - PSA, Screen; Future Colon cancer screening Comments: Cologuard Orders: - Cologuard Anxiety Comments: Hydroxyzine prn Orders: - hydrOXYzine (VISTARIL) 25 MG capsule; Take 1 (one) capsule (25 mg total) by mouth 3 (three) times a day as needed for anxiety . ? documented in this encounter [facility] 08-09-2022 Telephone encounter Note Form atting of this note is different from the original. Requested Prescriptions Pending Prescriptions Disp Refills metoprolol tartrate (LOPRESSOR) 25 MG tablet 180 tablet 0 Sig: Take 1 (one) tablet (25 mg total) by mouth 2 (two) times a day . [facility] 08-09-2022 Miscellaneous Notes Formattin g of this note is different from the original. Requested Prescriptions Pending Prescriptions Disp Refills metoprolol tartrate (LOPRESSOR) 25 MG tablet 180 tablet 0 Sig: Take 1 (one) tablet (25 mg total) by mouth 2 (two) times a day . [facility] documented in this encounter [facility] 05-29-2022 History of Presen t illness Narrative Subjective Patient ID: Manuela Guerrero is a 57 y.o. male. Pt is here to establish care. He has hx HTN and hyperlipidemia and he has not had med refill. Hypertension This is a chronic problem. The current episode started more than 1 year ago. The problem has been gradually worsening since onset. The problem is controlled. Risk factors for coronary artery disease include dyslipidemia, family history, male gender, obesity and stress. Past treatments include beta blockers. The current treatment provides significant improvement. Compliance problems: Pt has not had med refills- No PCP. Hyperlipidemia This is a chronic problem. The current episode started more than 1 year ago. Current antihyperlipidemic treatment includes statins. Compliance problems: Pt has been without meds- No PCP. Risk factors for coronary artery disease include dyslipidemia, family history, hypertension, male sex and stress. No problem-specific Assessment & Plan notes found for this encounter. Current Outpatient Medications Medication Sig Dispense Refill aspirin 81 MG EC tablet Take 1 (one) tablet (81 mg total) by mouth . metoprolol tartrate (LOPRESSOR) 25 MG tablet Take 1 (one) tablet (25 mg total) by mouth 2 (two) times a day . 180 tablet 0 rosuvastatin (CRESTOR) 10 MG tablet Take 1 (one) tablet (10 mg total) by mouth nightly . 90 tablet 0 No current facility-administered medications for this visit. The following portions of the patient's history were reviewed and updated as appropriate: allergies, current medications, past family history, past medical history, past social history, past surgical history, and problem list. Past Medical History: Diagnosis Date Hyperlipidemia Hypertension History reviewed. No pertinent surgical history. Family History Problem Relation Age of Onset Hypertension Father Coronary artery disease Father Asthma Maternal Grandmother Coronary artery disease Maternal Grandfather Cancer Paternal Grandmother Coronary artery disease Paternal Grandfather Review of Systems Constitutional: Negative. HENT: Negative. Eyes: Negative. Respiratory: Negative. Cardiovascular: Negative. Gastrointestinal: Negative. Endocrine: Negative. Genitourinary: Negative. Musculoskeletal: Negative. Skin: Negative. Allergic/Immunologic: Negative. Neurological: Negative. Hematological: Negative. Psychiatric/Behavioral: Negative. Objective Physical Exam Constitutional: Appearance: Normal appearance. Cardiovascular: Rate and Rhythm: Normal rate and regular rhythm. Pulses: Normal pulses. Heart sounds: Normal heart sounds. Pulmonary: Effort: Pulmonary effort is normal. Breath sounds: Normal breath sounds. Musculoskeletal: General: Normal range of motion. Skin: General: Skin is warm and dry. Neurological: Mental Status: He is alert and oriented to person, place, and time. Psychiatric: Mood and Affect: Mood normal. Behavior: Behavior normal. Assessment/Plan: Diagnoses and all orders for this visit: Encounter to establish care Comments: No subjective Concerns. Nl PE Orders: - CBC; Future - Comprehensive Metabolic Panel; Future Primary hypertension Comments: Labs- refill Orders: - metoprolol tartrate (LOPRESSOR) 25 MG tablet; Take 1 (one) tablet (25 mg total) by mouth 2 (two) times a day . Mixed hyperlipidemia Comments: labs-pt will come back when fasting, refill statin Orders: - rosuvastatin (CRESTOR) 10 MG tablet; Take 1 (one) tablet (10 mg total) by mouth nightly . - Lipid Panel; Future Prostate cancer screening - PSA, Screen; Future ? Depression Screening 05/29/2022 Little interest or pleasure in doing things 0 Feeling down, depressed, or hopeless 0 PHQ-2 Total Score 0 Trouble falling or staying asleep, or sleeping too much 0 Feeling tired or having little energy 0 Poor appetite or overeating 0 Feeling bad about yourself - or that you are a failure or have let yourself or your family down 0 Trouble concentrating on things, such as reading the newspaper or watching television 0 Moving or speaking so slowly that other people could have noticed. Or the opposite - being so fidgety or restless that you have been moving around a lot more than usual 0 Thoughts that you would be better off , or of hurting yourself in some way 0 PHQ-9 Total Score 0 If you checked off any problems, how difficult have these problems made it for you to do your work, take care of things at home, or get along with other people? Not difficult at all documented in this encounter [facility] Primary hypertension Unspecified essential [facility] Diagnosis Mixed hyperlipidemia Primary hypertension Unspecified essential hypertension [facility] Diagnosis Primary hypertension Unspecified essential hypertension Mixed hyperlipidemia [facility] Diagnosis Scrotal swelling- Primary Edema of male genital organs Scrotal abscess Other inflammatory disorder of male genital organs Primary hypertension Unspecified essential hypertension Mixed hyperlipidemia Elevated glucose Other abnormal glucose Prostate cancer screening Special screening for malignant neoplasm of prostate Colon cancer screening Special screening for malignant neoplasms, colon Anxiety Anxiety state, unspecified [facility] Diagnosis Scrotal abscess Other inflammatory disorder of male genital organs [facility] Diagnosis Scrotal abscess- Primary Other inflammatory disorder of male genital organs Chest discomfort Other chest pain [facility] Diagnosis Scrotal swelling- Primary Edema of male genital organs documented in this encounter [facility] Reason for Referral Specialty Diagnoses / Procedures Referred By Jose Ramon t Referred To Contact Diagnoses Scrotal abscess Procedures US Testicle With Color Flow Deisy Hernandez CNP [address] [place] [address] [facility] [address] [place] [id number] Referral ID Status Reason Start Date Expiration Date Visits Requested Visits Authorized [id number] New Request Patient Preference 3 02/20/2024 1 1 Specialty Diagnoses / Procedures Referred By Contbonilla t Referred To Contact Urology Diagnoses Scrotal swelling Deisy Hernandez CNP [address] [place] [address] Leo Davison MD [address] [place] [phone] Referral ID Status Reason Start Date Expiration Date Visits Requested Visits Authorized [id number] Authorized Specialty Services Required/Pat ient's Best Interest 3 02/20/2024 1 1 Specialty Diagnoses / Procedures Referred By Contac t Referred To Contact Urology Diagnoses Scrotal abscess Nilsa Kee MD [address] [place] [address] [address] [place] [address] Flora Rebolledo MD [address] [facility] [address] [place] [address] Referral ID Status Reason Start Date Expiration Date V isits Requested Visits Authorized [id number] Authorized 02/28/2023 02/28/2024 1 1 Specialty Diagnoses / Procedures Referred By Jose Ramon t Referred To Contact Diagnoses Scrotal abscess Procedures US Testicle With Color Flow Nilsa Kee MD [address] [place] [address] [address] [place] [address] [address] Phone: [phone] Referral ID Status Reason Start Date Expiration Date Visits Requested Visits Authorized [id number] Pending Review Patient Preference 03/04/2023 03/03/2024 1 1 Specialty Diagnoses / Procedures Referred By Contac t Referred To Contact Diagnoses Scrotal swelling Procedures US Testicle With Color Flow Deisy Hernandez, SECURITY POLICE OFFICER [address] [place] [address] OF SERVICE NOT IN SYSTEM Referral ID Status Reason Start Date Expiration Date Visits Requested Visits Authorized [id number] Pending Review Specialty Services Required/Saima galindo's Best Interest 03/11/2023 03/10/2024 1 1 Summary Purpose Family History No Family History Records FoundNo Family History Records Found Advance Directives No Advanced Directives Records FoundNo Advanced Directives Records Found Additional Source Comments Reason for Visit (unrecogniz ed section and content) Reason Onset Date Comments Medication Refill 08/09/2022 Reason Comments Medication Refill Reason Comments Follow-up Hospital follow up F asting would like to check blood work for regular visit Reason Comments Follow-up ER on Feb 13 - 4-5 day stay. Red Olivas had another ultrasound, finished Doxycycline and Amoxicillin. States still swelling, pian and hardness in testicle. Possibly Needs a new referral for Urologist. Needs a work note. Gap Closure (Health Maintenance) Reason Comments Follow-up Better, still some d iscomfort and weak. Still has some swelling on scrotum Some upper abd/ chest discomfort this morning. Gap Closure (Health Maintenance) Tetanus : Every 10yrs Never done Reason Comments Gap Closure (Health Maintenance) Follow-up One week F/U Care Teams (unrecognized sec tion and content) [employer] Relationship Specialty Start Date End Date Deisy Hernandez CNP [address] [place] [address] PCP - General Nurse Practitioner 05/29/22 [employer] Relationship Specialty Start Date End Date Deisy Hernandez CNP [address] [place] [address] PCP - General Nurse Practitioner 05/29/22 [employer] Relationship Specialty Start Date End Date Deisy Hernandez CNP [address] [place] [address] PCP - General Nurse Practitioner 05/29/22 [employer] Relationship Specialty Start Date End Date Deisy Hernandez CNP [address] [place] [address] PCP - General Nurse Practitioner 05/29/22 [employer] Relationship Specialty Start Date End Date Deisy Hernandez CNP [address] [place] [address] PCP - General Nurse Practitioner 05/29/22 [employer] Relationship Specialty Start Date End Date Deisy Hernandez CNP [address] [place] [address] PCP - General Nurse Practitioner 05/29/22 [employer] Relationship Specialty Start Date End Date Deisy Hernandez CNP [address] [place] [address] PCP - General Nurse Practitioner 05/29/22 [employer] Relationship Specialty Start Date End Date Deisy Hernandez CNP [address] [place] [address] PCP - General Nurse Practitioner 05/29/22 (unrecognized sect ion and content) No Status Records FoundNo Status Records Found INFORMATION SOURCE (unrecogn ized section and content) DATE CREATED AUTHOR AUTHOR'S MERNA AHSKINS 03/12/2023 [facility] FOR RECORDS PERTAINING TO PATIENTS WHO ARE OR HAVE BEEN ENROLLED IN A CHEMICAL DEPENDENCY/SUBSTANCEABUSE PROGRAM, SOME INFORMATION MAY BE OMITTED. This clinical summary was aggregated from multiple sources. Caution should be exercised in using it in the provision of clinical care. This summary normalizes information from multiple sources, and as a consequence, information in this document may materially change the coding, format and clinical context of patient data. In addition, data may be omitted in some cases. CLINICAL DECISIONS SHOULD BE BASED ON THE PRIMARY CLINICAL RECORDS. [facility]. provides no warranty or guarantee of the accuracy or completeness of information in this document.
--- NOTE | 2023-03-14 18:26 | US_ITS ---
INDICATION: SCROTAL ABSCESS EXAMINATION: Ultrasound US Scrotum (Contents) TECHNIQUE: Realtime ultrasound of the testicles was performed with grayscale, Color Doppler and spectral Doppler analysis. COMPARISON: FINDINGS: RIGHT: TESTIS: 3.8 x 2.8 x 2.0 cm. Normal in size and echotexture, without focal lesion. COLOR DOPPLER: Normal arterial flow present in the testicle with monophasic waveforms. EPIDIDYMIS: Slightly prominent in size with heterogeneous echotexture, with a 5 mm cyst. [Normal color Doppler flow pattern in the epididymis. HYDROCELE: Moderate complex hydrocele with debris and scrotal wall thickening. There is a heterogeneous area of the right scrotal wall with a possible collection estimated at 2.6 x 2.2 x 1.5 cm. VARICOCELE: None. LEFT: TESTIS: 4.0 x 2.8 x 2.1 cm. Normal in size and echotexture, without focal lesion. COLOR DOPPLER: Normal arterial flow present in the testicle with monophasic waveforms. EPIDIDYMIS: Normal in size and echotexture, without focal lesion. [Normal color Doppler flow pattern in the epididymis. HYDROCELE: Moderate complex hydrocele. Scrotal wall thickening. VARICOCELE: None. US/Testicular with Arterial Flow IMPRESSION: No testicular torsion. Bilateral complex hydrocele, right more than left. Scrotal wall thickening with possible collection of the right scrotal wall. Right epididymal cyst. Heterogeneous right epididymis. Electronically Signed: Romero Norton DO at 21:35 EST Reading Location ID and State: [facility] / [place] Tel [phone], Service support ,
== END | disposition home or self-care (01) ==
DX: N49.2 Inflammatory disorders of scrotum (principal); N43.3 Hydrocele, unspecified; N50.3 Cyst of epididymis
CPT/HCPCS: 76870; 93976

== ENCOUNTER 2023-05-23 23:03 | Emergency (ER) | payer OTHER, SELFPAY ==
[2023-05-23 23:04] VITALS: BP 121/83; PULSE 97; RESP 15; TEMP 36.8; O2SAT 96; BMI 34.7
[2023-05-23 23:09] VITALS: BP 139/111; PULSE 93; RESP 22; TEMP 37; O2SAT 93
--- NOTE | 2023-05-23 23:17 | EKG12_ITS ---
Test Reason : NAUSEA/VOMITING Blood Pressure : / mmHG Vent. Rate : 090 BPM Atrial Rate : 090 BPM P-R Int : 166 ms QRS Dur : 094 ms QT Int : 366 ms P-R-T Axes : -04 036 026 degrees QTc Int : 447 ms Normal sinus rhythm Possible Inferior infarct , age undetermined Abnormal ECG Confirmed by DAVEY NUÑEZ, A[place]ANDRI[place] ([id number]), material expeditor NAYELY OCHOA ([id number]) on 05/27/2023 11:04:35 AM Referred By: JOLIE Confirmed By:ALEXANDRIA MARISCAL MD
--- NOTE | 2023-05-23 23:17 | RAD_ITS ---
EXAM: XR CHEST, 1 VIEW CLINICAL INDICATION: cp TECHNIQUE: Frontal view of the chest. COMPARISON: 2 view chest 05/26/2020 FINDINGS: LUNGS AND PLEURAL SPACES: Unremarkable. No consolidation or edema. No pneumothorax. No effusion. HEART: Unremarkable. Cardiac silhouette not enlarged. MEDIASTINUM: Central airways and mediastinal contour are unremarkable. BONES/JOINTS: Unremarkable. No acute fracture. SOFT TISSUES: Unremarkable. RAD/Chest 1 View (Portable) IMPRESSION: No radiographic evidence of acute cardiopulmonary disease. Electronically Signed: Jesus Felix MD at 23:55 EDT ,
--- NOTE | 2023-05-23 23:19 | EDS_ITS ---
HPI History of Present Illness Chief Complaint: Nausea/Vomiting/Diarrhea Informant: patient Narrative Narrative: Patient presents with diarrhea for the past couple days. He states his abdomen feels bloated. He recently tested positive on the Cologuard test and is scheduled for consultation with general surgery in late May. Patient states tonight he started having dark watery diarrhea associated with vomiting. His vomitus is watery and dark in color. He has not had fever or chills. He does report some burning behind his sternum. PFSH PFSH Medical History Chest pain COVID-19 (~01/2020) Essential hypertension Family history of heart disease Mixed hyperlipidemia Home Medications metoprolol tartrate 25 mg tablet 25 mg PO BID BLOOD PRESSURE 05/09/20 [History Last Taken 02/13/23] rosuvastatin 10 mg tablet 10 mg PO DAILY CHOLESTEROL 05/09/20 [History Last Taken Unknown] aspirin 325 mg tablet 325 mg PO DAILY HEART HEALTH 02/13/23 [History Last Taken Unknown] dicyclomine 20 mg tablet 20 mg PO TID PRN abdominal pain #14 tabs 05/24/23 [Rx Last Taken Unknown] ondansetron 4 mg disintegrating tablet 4 mg PO Q8H PRN PRN Nausea #10 tabs 05/24/23 [Rx Last Taken Unknown] Allergy/AdvReac Type Severity Reaction Status Date / Time No Known Allergies Allergy Verified 05/23/23 23:09 Family History Father CAD (coronary artery disease) Stents X 3 Myocardial infarction Grandfather Myocardial infarction CABG CAD (coronary artery disease) Grandfather Myocardial infarction Social History household members: significant other housing: house Smoking Status: Light Smoker (<10/day) details: occasional substance use type: does not use caffeine: Yes Type: coffee Number of servings: 1 ROS ROS ED Constitutional Constitutional ED: Denies chills or fever(s) Eyes Eyes: Denies change in vision or discharge from eye(s) ENT ENT ED: Denies discharge from eye(s), rhinorrhea or sore throat Cardiovascular Cardiovascular: Reports chest pain; Denies palpitations Respiratory/Chest Respiratory/Chest: Denies cough or dyspnea Gastrointestinal Gastrointestinal: Reports abdominal pain, diarrhea, nausea and vomiting Genitourinary Genitourinary ED: Denies dysuria Musculoskeletal Musculoskeletal: Denies back pain or extremity pain Integumentary Denies Abrasions or rash Neurologic Neurologic: Denies headache(s) or weakness Allergic/Immunologic Allergic/Immunologic ED: Denies lip swelling or urticaria EXAM Physical Exam Const Vital Signs: 05/23/23 23:04 05/23/23 23:09 05/24/23 00:09 Temperature 98.2 F 98.6 F 99.1 F Temperature Source Oral Temporal Oral Pulse Rate 97 93 88 Respiratory Rate 15 22 H 14 Blood Pressure 121/83 H 139/111 H 115/78 Blood Pressure Mean 95 120 90 Pulse Ox 96 93 99 Oxygen Delivery Method Room Air Room Air Room Air 05/24/23 02:00 05/24/23 01:00 Temperature 99.1 F 99.1 F Temperature Source Temporal Oral Pulse Rate 77 81 Respiratory Rate 15 15 Blood Pressure 122/92 H 140/90 H Blood Pressure Mean 102 106 Pulse Ox 94 98 Oxygen Delivery Method Room Air Room Air Positive well nourished and well developed General Appearance ED: well developed HEENT Reports moist mucous membranes Eyes EOMs intact bilaterally Chest Wall inspection of chest normal and palpation of chest normal Resp normal respiratory effort and clear to auscultation bilaterally Cardio regular rate and regular rhythm GI non-tender Auscultation: hypoactive bowel sounds Palpation: soft Extremity normal to inspection Neuro oriented x3 and no sensory deficits noted Psych mental status grossly normal Skin no rashes or lesions noted MDM MDM MDM Narrative Medical decision making narrative: Patient placed on groundwater monitoring technician. IV line established. EKG obtained to evaluate for cardiac arrhythmia/ischemia. Chest x-ray obtained to evaluate for acute lung pathology, cardiac size, or mediastinal abnormality. Labwork obtained to evaluate for leukocytosis, anemia, and electrolyte derangement. Patient brought a water bottle filled with his dark-colored emesis. This be sent for Gastroccult. Patient is given Zofran as well as IV Protonix. History & Record Review Discussion w/independent historian: Patient and Significant other Lab Data Attestation: I reviewed the patient's lab results. Labs: Laboratory Results - last 24 hr 05/23/23 23:16 WBC 10.8 RBC 4.95 Hgb 14.7 Hct 44.4 MCV 89.7 MCH 29.7 MCHC 33.1 RDW Std Deviation 43.8 RDW Coeff of Eboni 13.3 Plt Count 362 MPV 10.1 Immature Gran % (Auto) 0.700 Neut % (Auto) 86.3 H Lymph % (Auto) 6.4 L [place] % (Auto) 6.3 Eos % (Auto) 0.0 Baso % (Auto) 0.3 Absolute Neuts (auto) 9.3 H Absolute Lymphs (auto) 0.69 L Nucleated RBC % 0 PT 14.9 INR 1.2 APTT 26.5 Sodium 139 Potassium 4.0 Chloride 110 H Carbon Dioxide 21.0 Anion Gap 8 BUN 25 H Creatinine 1.11 Estim Creat Clear Calc 88.82 Est GFR (MDRD) Af Amer 87 Est GFR (MDRD) Non-Af 72 BUN/Creatinine Ratio 22.5 H Glucose 130 H Calcium 8.5 Total Bilirubin 0.70 Direct Bilirubin 0.17 AST 14 L ALT 19 Alkaline Phosphatase 81 Total Protein 7.7 Albumin 3.7 Globulin 4.0 Lipase 29 Radiography Chest X-Ray - ED: 1 View, Read by ED Physician, Chronic Changes and No Infiltrates Diagnostic Testing: Clinical Impression(s) from Imaging Studies Chest X-Ray 05/23/23 23:17 IMPRESSION: No radiographic evidence of acute cardiopulmonary disease. Electronically Signed: Jesus Felix MD at 23:55 EDT Reading Location ID and State: [address] [place] [address] Tel , Service support , Abdomen/Pelvis CT 05/24/23 00:24 IMPRESSION: 1. No acute abnormalities identified in the abdomen/pelvis. 2. 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 Electronically Signed: Jesus Felix MD at 1:39 EDT , EKG Initial EKG: Attestation: I personally reviewed and interpreted this EKG as follows: Interpretation: Sinus Rhythm (Sinus at 90 with no acute ischemia.) Treatment and Re-Evaluation :: CBC reveals a white count of 10.8 with 86% neutrophils. Hemoglobin is 14.7. Coags unremarkable. Chemistry studies reveal a BUN of 25 with a creatinine 1.11. LFTs and lipase are unremarkable. Portable chest x-ray per my interpretation reveals chronic changes with no focal infiltrate. Radiology interpretation reviewed and agrees. EKG is sinus rhythm with no evidence of ischemia. Gastroccult is sent and is negative for blood. CT scan of the abdomen pelvis reveals no obvious abnormalities. At this time patient is able to tolerate p.o. fluids. I will write him a prescription for Zofran and Bentyl. I will give him the phone number for surgery here to see if he may be able to have his consultation and colonoscopy sooner than what is currently scheduled. Return instructions were provided. Patient given a work note for today. Discharge Plan Triage Chief Complaint: Nausea/Vomiting/Diarrhea ED Provider: Shannan Garcia Dx/Rx/DC Orders Clinical Impression: Gastroenteritis Instructions: ED Gastroenteritis, Viral (Adult) Prescriptions: New ondansetron 4 mg tablet,disintegrating 4 mg PO Q8H PRN PRN (Reason: Nausea) Qty: 10 0RF dicyclomine 20 mg tablet 20 mg PO TID PRN (Reason: abdominal pain) Qty: 14 0RF No Action aspirin 325 mg tablet 325 mg PO DAILY metoprolol tartrate 25 mg tablet 25 mg PO BID rosuvastatin 10 mg tablet 10 mg PO DAILY Patient Comments: PT STATES IT UPSETS THEIR STOMACH SO THEY HAVE NOT BEEN TAKING THIS MEDICATION. PT STATES THEY ARE SUPPOSED TO BE ON THIS MEDICATION ( OF 02-13-23) Stand Alone Forms: ED Work / School Excuse Primary Care Provider: BABITA HERNANDEZ Referrals: BABITA HERNANDEZ [Other] - 3-5 Days if not improving Abbie Mcgraw MD [Med Staff - Active Staff] - As Needed Disposition Disposition: Home, Self Care
[2023-05-23 23:24] LABS: Absolute Lymphocyte Count 0.69 X10^3/uL (0.83-4.51); Absolute Neutrophil Count 9.3 X10^3/uL (2.0-7.7); Basophil# 0.03 X10^3/uL; Basophil% 0.3 % (0-1); Hematocrit 44.4 % (40-54); Hemoglobin 14.7 g/dL (13.0-16.5); Lymphocyte # 0.69 X10^3/ul (0.83-4.51); Lymphocyte % 6.4 % (19-41); Mean Corp Hgb Conc 33.1 g/dL (32-36); Mean Corpuscular Hgb 29.7 pg (27.0-32.0); Mean Corpuscular Volume 89.7 fL (80-94); Mean Platelet Vol. 10.1 fl (6.2-12.0); Monocyte# 0.68 X10^3/uL; Monocyte% 6.3 % (0-10); NRBC Flagged by Analyzer 0 % (0-5); Neutrophil # 9.27 X10^3/uL (2.7-7.7); Neutrophil % 86.3 % (47-70); Platelet Count 362 K/mm3 (150-450); RBC Distribution Width CV 13.3 % (11.6-14.6); RBC Distribution Width SD 43.8 fl (35.1-43.9); Red Blood Count 4.95 M/mm3 (4.6-6.2); White Blood Count 10.8 K/mm3 (4.4-11.0)
[2023-05-23 23:33] LABS: International Normalized Ratio 1.2; Prothrombin Time (Protime)PT. 14.9 SECONDS (11.7-14.9)
[2023-05-23 23:35] LABS: Partial Thromboplast Time 26.5 Seconds (24.1-36.2)
[2023-05-23] MEDS: Pantoprazole Sodium 40 MG in 0.9% Normal Saline (100mL MB+) 100 ML 330 MG IV (23:41)
[2023-05-23] MEDS: 0.9% Normal Saline (1000mL) 1,000 ML 1000 ML IV (23:41)
[2023-05-23] MEDS: Ondansetron 4 MG/2 ML Vial IV (23:41)
[2023-05-23 23:42] LABS: AST(SGOT) 14 U/L (15-37); Alanine Aminotransfer ALT/SGPT 19 U/L (16-61); Albumin, Serum 3.7 g/dL (3.2-5.0); Alkaline Phosphatase 81 U/L (45-117); Anion Gap 8 (5-15); BUN 25 mg/dL (7-18); BUN/Creat Ratio 22.5 RATIO (10-20); Bilirubin, Direct 0.17 mg/dL (0.00-0.30); Calcium,Total 8.5 mg/dL (8.5-10.1); Chloride 110 mmol/L (98-107); Creatinine, Serum 1.11 mg/dL (0.70-1.30); EST Glomerular Filtration Rate 72 mL/min (>60); Est Glom Filt Rate - Afr Amer 87 mL/min (>60); Estimated Creatinine Clearance 88.82 ml/min; Glucose 130 mg/dL (74-106); Lipase 29 U/L (13-75); Protein, Total 7.7 g/dL (6.4-8.2); Sodium Level 139 mmol/L (136-145)
[2023-05-24 00:09] VITALS: BP 115/78; PULSE 88; RESP 14; TEMP 37.3; O2SAT 99
[2023-05-24] MEDS: 0.9% Normal Saline (1000mL) 1,000 ML 150 ML IV (00:16)
--- NOTE | 2023-05-24 00:24 | CT_ITS ---
EXAM: CT ABDOMEN AND PELVIS WITH INTRAVENOUS CONTRAST CLINICAL INDICATION: abd pain TECHNIQUE: Helically acquired images were obtained of the abdomen and pelvis with intravenous contrast. This CT exam was performed using one or more of the following dose reduction techniques: automated exposure control, adjustment of the mA and/or kV according to patient size, and/or use of iterative reconstruction technique. CONTRAST: IV 100mL [id number] RADIATION DOSE: CTDIvol = 18.68 mGy, DLP = 1347.23 mGy-cm COMPARISON: CT abdomen pelvis 02/13/2023 FINDINGS: LOWER THORAX: Unremarkable. Lung bases are clear. No cardiomegaly. No significant pericardial effusion. ABDOMEN: LIVER: Unremarkable. Homogeneous. No focal mass. GALLBLADDER AND BILE DUCTS: Unremarkable. No calcified gallstones. No gallbladder distention or wall edema. No intra- or extrahepatic biliary ductal dilation. PANCREAS: Unremarkable. No focal cystic or solid mass. SPLEEN: Unremarkable. Normal size without focal cystic or solid mass. ADRENALS: Unremarkable. No nodules. KIDNEYS AND URETERS: Unremarkable. Normal renal size and position. No hydronephrosis. STOMACH AND BOWEL: Diverticular disease of the colon but no diverticulitis. No stomach or bowel distention. PELVIS: APPENDIX: The appendix is normal. BLADDER: Unremarkable. REPRODUCTIVE: Unremarkable as visualized. No mass. ABDOMEN and PELVIS: INTRAPERITONEAL SPACE: Unremarkable. No ascites or other fluid collection. No free air. BONES/JOINTS: Unremarkable. No suspicious lytic or blastic abnormality. SOFT TISSUES: Unremarkable. No discrete abdominal or pelvic wall hernia. VASCULATURE: Moderate atherosclerotic changes of the abdominal aorta without dilation or acute abnormality. LYMPH NODES: Unremarkable. No enlarged lymph nodes. CT/Abdomen/Pelvis W IV Cont ONLY IMPRESSION: 1. No acute abnormalities identified in the abdomen/pelvis. 2. 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 Electronically Signed: Jesus Felix MD at 1:39 EDT ,
[2023-05-24 01:00] VITALS: BP 140/90; PULSE 81; RESP 15; TEMP 37.3; O2SAT 98
[2023-05-24 02:00] VITALS: BP 122/92; PULSE 77; RESP 15; TEMP 37.3; O2SAT 94
[2023-05-24 02:28] VITALS: BP 128/93; PULSE 89; RESP 15; TEMP 36.6; O2SAT 100
== END 2023-05-24 02:29 | disposition home or self-care (01) ==
PROVIDERS: Emergency Provider Emergency Medicine; Visit Provider Emergency Medicine
DX: K52.9 Noninfective gastroenteritis and colitis, unspecified (principal); F17.200 Nicotine dependence, unspecified, uncomplicated; I10 Essential (primary) hypertension; E78.2 Mixed hyperlipidemia; Z79.899 Other long term (current) drug therapy; Z79.82 Long term (current) use of aspirin
CPT/HCPCS: 71045; 74177; 80048; 80076; 82271; 83690; 85025; 85610; 85730; 93005; 99284; J7030; Q9967; A4216; J2405

== ENCOUNTER → 2024-04-15 | Outpatient (CLI) | payer OTHER, SELFPAY ==
[2024-04-15 17:36] LABS: Absolute Lymphocyte Count 2.21 X10^3/uL (0.83-4.51); Absolute Neutrophil Count 5.6 X10^3/uL (2.0-7.7); Basophil# 0.06 X10^3/uL; Basophil% 0.7 % (0-1); Eosinophil# 0.12 X10^3/uL; Eosinophils% 1.3 % (0-5); Hematocrit 45.9 % (40-54); Hemoglobin 15.1 g/dL (13.0-16.5); Lymphocyte # 2.21 X10^3/ul (0.83-4.51); Lymphocyte % 24.6 % (19-41); Mean Corp Hgb Conc 32.9 g/dL (32-36); Mean Corpuscular Hgb 30.7 pg (27.0-32.0); Mean Corpuscular Volume 93.3 fL (80-94); Monocyte# 0.94 X10^3/uL; Monocyte% 10.4 % (0-10); NRBC Flagged by Analyzer 0 % (0-5); Neutrophil # 5.61 X10^3/uL (2.7-7.7); Neutrophil % 62.3 % (47-70); Platelet Count 351 K/mm3 (150-450); RBC Distribution Width CV 13.1 % (11.6-14.6); RBC Distribution Width SD 44.9 fl (35.1-43.9); Red Blood Count 4.92 M/mm3 (4.6-6.2)
[2024-04-15 17:56] LABS: AST(SGOT) 11 U/L (15-37); Alanine Aminotransfer ALT/SGPT 23 U/L (16-61); Albumin, Serum 3.9 g/dL (3.2-5.0); Alkaline Phosphatase 85 U/L (45-117); Anion Gap 5 (5-15); BUN 22 mg/dL (7-18); Calcium,Total 8.9 mg/dL (8.5-10.1); Chloride 107 mmol/L (98-107); Cholesterol 214 mg/dL (200); Creatinine, Serum 1.05 mg/dL (0.70-1.30); EST Glomerular Filtration Rate 77 mL/min (>60); Est Glom Filt Rate - Afr Amer 93 mL/min (>60); Globulin 3.8 g/dL (2.2-4.2); Glucose 91 mg/dL (74-106); High Density Lipoprotein 52 mg/dL; PSA,Total - Annual Screen 2.61 ng/mL (0.00-4.00); Potassium 4.3 mmol/L (3.5-5.1); Protein, Total 7.7 g/dL (6.4-8.2); Sodium Level 139 mmol/L (136-145); Triglycerides 169 mg/dL; Very Low Density Lipoprotein 34 mg/dL (5-40)
[2024-04-15 18:29] LABS: Hemoglobin A1c 5.8 % (3.8-5.6)
[2024-04-16 14:29] LABS: Vitamin B12 236 pg/mL (211-911); Vitamin D,25 Hydroxy 14.1 ng/mL
== END | disposition home or self-care (01) ==
LOC: VSLAB 16:16
PROVIDERS: PCP Nurse Practitioner Family; Visit Provider Nurse Practitioner Family
DX: I10 Essential (primary) hypertension (principal); E78.5 Hyperlipidemia, unspecified; E56.9 Vitamin deficiency, unspecified; Z12.5 Encounter for screening for malignant neoplasm of prostate
CPT/HCPCS: 36415; 80053; 80061; 82306; 82607; 83036; 84153; 84443; 85025; G0103